=== PATIENT | female | born 1995 ===

== ENCOUNTER 2017-10-15 10:12 | Emergency (ER) | payer MEDICAID, OTHER ==
[2017-10-15 10:20] VITALS: RESP 16; O2SAT 99
[2017-10-15 10:21] VITALS: BMI 28.3
[2017-10-15] MEDS ORDERED: Sodium Chloride 0.9% 1,000 ML IV ONE ×2 (11:26→14:40)
--- NOTE | 2017-10-15 11:37 | ED PDOC ---
HPI: Abdomen Time Seen by Provider: 10/15/17 10:39 Chief Complaint (Nursing): Female Genitourinary History Per: Patient History/Exam Limitations: no limitations Onset/Duration Of Symptoms: Days (1), Gradual Current Symptoms Are (Timing): Still Present Severity: Mild Location Of Pain/Discomfort: RUQ Quality Of Discomfort: Sharp (rads to back) Associated Symptoms: Nausea, Vomiting. denies: Fever, Chills, Diarrhea, Back Pain, Chest Pain, Constipation, Urinary Symptoms Exacerbating Factors: None Alleviating Factors: None Additional History Per: Patient Additional Complaint(s): pt c/o right flank pain for 3-4 days. with some mild urination discomfort. also c.o low grade fever yesterday and a sore throat Past Medical History Reviewed: Historical Data, Nursing Documentation, Vital Signs Vital Signs: Last Vital Signs Temp 97.4 F L 10/15/17 15:23 Pulse 95 H 10/15/17 15:23 Resp 16 10/15/17 15:23 BP 140/92 H 10/15/17 15:23 Pulse Ox 99 10/15/17 15:42 - Medical History PMH: Asthma, Diabetes (type 1), Gall Bladder Disease (CHOLECYSTECTOMY), Kidney Stones, Chronic Kidney Disease Denies: Atrial Fibrillation, Cardia Arrhythmia, CHF, Hepatitis, HTN, Seizures , Sexually Transmitted Disease - Surgical History Surgical History: Cholecystectomy - Family History Family History: States: Unknown Family Hx - Living Arrangements Living Arrangements: With Family - Social History Current smoker - smoking cessation education provided: No - Immunization History Hx Tetanus Toxoid Vaccination: No Hx Influenza Vaccination: No Hx Pneumococcal Vaccination: No - Home Medications Home Medications: Ambulatory Orders Medication Instructions Recorded Ondansetron ODT [Zofran ODT] 4 mg PO Q6 #7 odt 09/20/17 Sucralfate [Carafate] 1 gm PO BID #20 tab 09/20/17 Famotidine [Pepcid] 20 mg PO BID PRN #20 tab 10/15/17 Ondansetron [Zofran Odt] 4 mg PO TID PRN #20 odt 10/15/17 - Allergies Allergies/Adverse Reactions: Allergies Allergy/AdvReac Type Severity Reaction Status Date / Time shellfish derived Allergy SWELLING Verified 09/20/17 09:43 Review of Systems ROS Statement: Except As Marked, All Systems Reviewed And Found Negative Constitutional: Negative for: Fever, Chills ENT: Positive for: Throat Pain Cardiovascular: Negative for: Chest Pain, Palpitations Respiratory: Negative for: Cough, Shortness of Breath Gastrointestinal: Positive for: Nausea, Vomiting, Abdominal Pain Genitourinary Female: Positive for: Dysuria. Negative for: Vaginal Discharge, Vaginal Bleeding, Pelvic Pain Skin: Negative for: Rash Physical Exam - Reviewed Nursing Documentation Reviewed: Yes Vital Signs Reviewed: Yes - Physical Exam Appears: Positive for: Uncomfortable Head Exam: Positive for: ATRAUMATIC, NORMAL INSPECTION, NORMOCEPHALIC Eye Exam: Positive for: Normal appearance, EOMI, PERRL ENT: Positive for: Pharynx Is (clear,mmm). Negative for: Pharyngeal Erythema Neck: Positive for: Normal, Painless ROM, Supple Cardiovascular/Chest: Positive for: Regular Rate, Rhythm, Chest Non Tender. Negative for: Edema, Gallop Respiratory: Positive for: Normal Breath Sounds. Negative for: Decreased Breath Sounds, Accessory Muscle Use, Crackles, Rales, Rhonchi, Stridor, Wheezing , Respiratory Distress Gastrointestinal/Abdominal: Positive for: Normal Exam, Bowel Sounds, Soft, Other (obese). Negative for: Tenderness, Organomegaly, Mass, Distended, Guarding, Rebound, Hernia, Asicites Back: Positive for: Normal Inspection. Negative for: L CVA Tenderness, R CVA Tenderness Extremity: Positive for: Normal ROM. Negative for: Tenderness, Pedal Edema, Calf Tenderness, Deformity Neurologic/Psych: Positive for: Alert, commissary officer II-XII, Oriented. Negative for: Motor/Sensory Deficits - Laboratory Results Result Diagrams: 10/15/17 12:00 10/15/17 12:49 - ECG O2 Sat by Pulse Oximetry: 99 Pulse Ox Interpretation: Normal - Progress ED Course And Treament: PROCEDURE: CT scan abdomen pelvis dated 10/15/2017 HISTORY: Right-sided flank pain r/o stone COMPARISON: Comparison made with prior CT scan abdomen pelvis 07/08/2016 TECHNIQUE: Contiguous helical/transaxial images of the abdomen and pelvis of performed without oral or intravenous contrast material. Sagittal and coronal reformats generated. Radiation dose: Total exam DLP = This CT exam was performed using one or more of the following dose reduction techniques: Automated exposure control, adjustment of the mA and/or kV according to patient size, and/or use of iterative reconstruction technique. FINDINGS: LOWER THORAX: Lung bases clear. No infiltrate effusion or basilar pneumothorax. . There is small hiatal hernia with wall thickening of the distal esophagus likely due to protrusion of gastric mucosa. Possibility of esophagitis not excluded. Heart size within range of normal. No significant pericardial effusion. LIVER: Liver is enlarged measuring nearly 21 cm in CC dimension. No obvious hepatic mass collection or calcification. The all GALLBLADDER AND BILE DUCTS: The gallbladder appears incompletely distended and poorly visualized. PANCREAS: Pancreas appears grossly unremarkable without mass collection or calcification. SPLEEN: Spleen is enlarged measuring just over 13 cm in AP dimension. No splenic mass collection or calcification. ADRENALS: No adrenal lesions are identified. KIDNEYS AND URETERS: There appears to be at least 1 punctate calcification in the mid to lower pole collecting system right kidney with what could represent a tiny faint microcalcifications upper pole. No evidence of right-sided hydronephrosis however there is punctate calcification midpole left kidney. No evidence of left-sided hydronephrosis. BLADDER: Urinary bladder incompletely distended which in part accounts for thick-walled appearance however the possibility of a cystitis not excluded. Clinical correlation recommended. REPRODUCTIVE: Uterus unremarkable. . There is a relatively large approximately 4.6 x 3.2 x 4.3 cm elliptical shaped low-attenuation focus left adnexum likely representing a proteinaceous left ovarian cyst. The the APPENDIX: Normal-appearing appendix best seen on coronal image number [id number]. BOWEL: Evaluation of the bowel is limited due to the lack of oral contrast material. The stomach is incompletely distended. Visualized loops of small bowel exhibit normal contour and caliber. No evidence of acute mechanical small bowel obstruction. Stool and air seen throughout the cecum, ascending and transverse colon. Most of the left colon is collapsed. No definitive evidence of abnormal mural wall thickening. PERITONEUM: Unremarkable. No fluid collection. No free air. LYMPH NODES: Unremarkable. No enlarged lymph nodes. VASCULATURE: Unremarkable. No aortic aneurysm. BONES: No fracture or destructive lesion. OTHER FINDINGS: None. IMPRESSION: There are a few punctate calcifications both kidneys however no evidence of hydronephrosis. Incomplete distention of the urinary bladder which presumably accounts for thick -walled appearance however the possibility of a cystitis not excluded therefore clinical correlation with urinalysis recommended. Hepatosplenomegaly. urine shows no ketones, no nit or leuks. no urinary complaints will d/c home. Re-evaluation Time: 14:30 Condition: Improved Disposition - Clinical Impression Clinical Impression: Vomiting, Hyperglycemia due to type 1 diabetes mellitus - Patient ED Disposition Is Patient to be Admitted: No Counseled Patient/Family Regarding: Studies Performed, Diagnosis, Need For Followup, Rx Given - Disposition Referrals: [facility] [Outside] (2 to 3 days) Disposition: Routine/Home Disposition Time: 14:30 Condition: GOOD Prescriptions: Famotidine [Pepcid] 20 mg PO BID PRN #20 tab PRN Reason: Nausea/Vomiting Ondansetron [Zofran Odt] 4 mg PO TID PRN #20 odt PRN Reason: Nausea/Vomiting Instructions: Nausea and Vomiting, Adult (DC) Forms: [employer] (Ecuadorean)
[2017-10-15 12:18] LABS: BASO % 0.4 % (0.0-2.0); EOS % 0.3 % (0.0-4.0); HEMOGLOBIN 14.5 g/dL (12.0-16.0); LYMPH # 1.1 K/uL (1.0-4.3); LYMPH % 10.3 % (20.0-40.0); MEAN CELL VOLUME 92.6 fl (81.0-99.0); MEAN CORPUSCULAR HEMOGLOBIN 32.5 pg (27.0-31.0); MEAN CORPUSCULAR HGB CONC 35.1 g/dL (33.0-37.0); MEAN PLATELET VOLUME 8.9 fl (7.2-11.7); MONO # 0.6 K/uL (0.0-0.8); MONO % 5.6 % (0.0-10.0); NEUT # 8.6 K/uL (1.8-7.0); NEUT % 83.4 % (50.0-75.0); NRBC % 0.1 % (0.0-0.0); RBC 4.45 Mil/uL (3.80-5.20); RED CELL DISTRIBUTION WIDTH 14.1 % (11.5-14.5)
[2017-10-15 12:22] LABS: WHITE BLOOD COUNT 10.3 K/uL (4.8-10.8)
[2017-10-15 13:08] LABS: ALB/GLOB RATIO 1.2 (1.0-2.1); ALBUMIN 4.3 g/dL (3.5-5.0); ALT/SGPT 49 U/L (9-52); AMYLASE 80 U/L (30-110); AST/SGOT 26 U/L (14-36); BLOOD UREA NITROGEN 11 mg/dl (7-17); CALCIUM 8.8 mg/dL (8.4-10.2); GFR AFRICAN-AMERICAN > 60; GFR NON-AFRICAN AMERICAN > 60; LIPASE 80 U/L (23-300)
[2017-10-15] MEDS ORDERED: Insulin Regular 100 units/ml IV STA (13:27)
--- NOTE | 2017-10-15 13:38 | CT ---
PROCEDURE: CT scan abdomen pelvis dated 10/15/2017 HISTORY: Right-sided flank pain r/o stone COMPARISON: Comparison made with prior CT scan abdomen pelvis 07/08/2016 TECHNIQUE: Contiguous helical/transaxial images of the abdomen and pelvis of performed without oral or intravenous contrast material. Sagittal and coronal reformats generated. Radiation dose: Total exam DLP = This CT exam was performed using one or more of the following dose reduction techniques: Automated exposure control, adjustment of the mA and/or kV according to patient size, and/or use of iterative reconstruction technique. FINDINGS: LOWER THORAX: Lung bases clear. No infiltrate effusion or basilar pneumothorax. . There is small hiatal hernia with wall thickening of the distal esophagus likely due to protrusion of gastric mucosa. Possibility of esophagitis not excluded. Heart size within range of normal. No significant pericardial effusion. LIVER: Liver is enlarged measuring nearly 21 cm in CC dimension. No obvious hepatic mass collection or calcification. The all GALLBLADDER AND BILE DUCTS: The gallbladder appears incompletely distended and poorly visualized. PANCREAS: Pancreas appears grossly unremarkable without mass collection or calcification. SPLEEN: Spleen is enlarged measuring just over 13 cm in AP dimension. No splenic mass collection or calcification. ADRENALS: No adrenal lesions are identified. KIDNEYS AND URETERS: There appears to be at least 1 punctate calcification in the mid to lower pole collecting system right kidney with what could represent a tiny faint microcalcifications upper pole. No evidence of right-sided hydronephrosis however there is punctate calcification midpole left kidney. No evidence of left-sided hydronephrosis. BLADDER: Urinary bladder incompletely distended which in part accounts for thick-walled appearance however the possibility of a cystitis not excluded. Clinical correlation recommended. REPRODUCTIVE: Uterus unremarkable. . There is a relatively large approximately 4.6 x 3.2 x 4.3 cm elliptical shaped low-attenuation focus left adnexum likely representing a proteinaceous left ovarian cyst. The the APPENDIX: Normal-appearing appendix best seen on coronal image number [id number]. BOWEL: Evaluation of the bowel is limited due to the lack of oral contrast material. The stomach is incompletely distended. Visualized loops of small bowel exhibit normal contour and caliber. No evidence of acute mechanical small bowel obstruction. Stool and air seen throughout the cecum, ascending and transverse colon. Most of the left colon is collapsed. No definitive evidence of abnormal mural wall thickening. PERITONEUM: Unremarkable. No fluid collection. No free air. LYMPH NODES: Unremarkable. No enlarged lymph nodes. VASCULATURE: Unremarkable. No aortic aneurysm. BONES: No fracture or destructive lesion. OTHER FINDINGS: None. IMPRESSION: There are a few punctate calcifications both kidneys however no evidence of hydronephrosis. Incomplete distention of the urinary bladder which presumably accounts for thick-walled appearance however the possibility of a cystitis not excluded therefore clinical correlation with urinalysis recommended. Hepatosplenomegaly.
[2017-10-15 15:24] VITALS: BP 140/92; PULSE 95; TEMP 97.4
== END 2017-10-15 16:09 | disposition home or self-care (01) ==
LOC: H.ER 10:12
DX: E11.65 Type 2 diabetes mellitus with hyperglycemia (principal); R11.10 Vomiting, unspecified; Z79.4 Long term (current) use of insulin
CPT/HCPCS: 74176; 80053; 81025; 82150; 82948; 83690; 84703; 85025; 87070; 87430; 87491; 87591; 96361; 96374; 99285; J1885; J7040

== ENCOUNTER 2017-11-10 14:51 | Emergency (ER) | payer MEDICAID, OTHER ==
[2017-11-10 14:51] VITALS: BMI 28.3
[2017-11-10 15:27] VITALS: RESP 16
[2017-11-10] MEDS ORDERED: Sodium Chloride 0.9% 1,000 ML IV STA (15:59)
--- NOTE | 2017-11-10 16:02 | ED PDOC ---
HPI: Abdomen Time Seen by Provider: 11/10/17 15:42 Chief Complaint (Nursing): Abdominal Pain Chief Complaint (Provider): Abdominal pain History Per: Patient History/Exam Limitations: no limitations Onset/Duration Of Symptoms: Days (x3) Current Symptoms Are (Timing): Still Present Location Of Pain/Discomfort: Epigastric Quality Of Discomfort: "Pain" Associated Symptoms: Nausea, Vomiting. denies: Fever, Chills, Diarrhea, Chest Pain, Urinary Symptoms Additional Complaint(s): Meseret Florez is a 22 year old female, with a past medical history of diabetes, who presents to the emergency department complaining of abdominal pain associated with nausea and vomiting onset for x3 days. Patient states she had similar symptoms x1 month ago and was given Zofran and Toradol. Patient reports having this pain multiple times in the past but is unsure what causes it. She did not take medications for the pain. She denies any chest pain, shortness of breath, weakness, numbness, vision changes, headache, dizziness, neck pain, fever, chills, diarrhea or urinary symptoms. No further medical complaints. PMD: Dr. Dumont Past Medical History Reviewed: Historical Data, Nursing Documentation, Vital Signs Vital Signs: Last Vital Signs Temp 98.2 F 11/10/17 15:25 Pulse 108 H 11/10/17 15:25 Resp 16 11/10/17 15:25 BP 145/95 H 11/10/17 15:25 Pulse Ox 100 11/10/17 18:40 - Medical History PMH: Asthma, Diabetes (type 1), Gall Bladder Disease (CHOLECYSTECTOMY), Kidney Stones, Chronic Kidney Disease Denies: Atrial Fibrillation, Cardia Arrhythmia, CHF, Hepatitis, HTN, Seizures , Sexually Transmitted Disease - Surgical History Surgical History: Cholecystectomy - Family History Family History: States: Unknown Family Hx - Social History Alcohol: None Drugs: Denies - Immunization History Hx Tetanus Toxoid Vaccination: No Hx Influenza Vaccination: No Hx Pneumococcal Vaccination: No - Home Medications Home Medications: Ambulatory Orders Medication Instructions Recorded Insulin Aspart, Recombinant 10 unit SQ HS 10/16/17 [Novolog] Insulin Glargine, Recombina 7 units SQ AC 10/16/17 [Lantus] Ondansetron [Zofran] 4 mg PO Q8H PRN #6 tab 11/10/17 - Allergies Allergies/Adverse Reactions: Allergies Allergy/AdvReac Type Severity Reaction Status Date / Time shellfish derived Allergy SWELLING Verified 09/20/17 09:43 Review of Systems ROS Statement: Except As Marked, All Systems Reviewed And Found Negative Constitutional: Negative for: Fever, Chills Eyes: Negative for: Vision Change Cardiovascular: Negative for: Chest Pain Respiratory: Negative for: Shortness of Breath Gastrointestinal: Positive for: Nausea, Vomiting, Abdominal Pain. Negative for : Diarrhea Genitourinary Female: Negative for: Dysuria, Frequency, Incontinence, Hematuria Musculoskeletal: Negative for: Neck Pain Skin: Negative for: Rash Neurological: Negative for: Weakness, Numbness Physical Exam - Reviewed Nursing Documentation Reviewed: Yes Vital Signs Reviewed: Yes - Physical Exam Appears: Positive for: Non-toxic, No Acute Distress Head Exam: Positive for: ATRAUMATIC, NORMOCEPHALIC Skin: Positive for: Normal Color, Warm, Dry Eye Exam: Positive for: Normal appearance, EOMI, PERRL Neck: Positive for: Painless ROM Cardiovascular/Chest: Positive for: Regular Rate, Rhythm. Negative for: Murmur Respiratory: Positive for: Normal Breath Sounds. Negative for: Respiratory Distress Gastrointestinal/Abdominal: Positive for: Tenderness (mild epigastric) Back: Positive for: Normal Inspection. Negative for: L CVA Tenderness, R CVA Tenderness, Vertebral Tenderness Extremity: Positive for: Normal ROM (all extremities). Negative for: Tenderness , Pedal Edema, Deformity, Swelling Neurologic/Psych: Positive for: Alert, Oriented. Negative for: Motor/Sensory Deficits - Laboratory Results Result Diagrams: 11/10/17 16:43 11/10/17 16:43 Interpretation Of Abn Labs: 11.1 wbc - ECG O2 Sat by Pulse Oximetry: 100 (RA) Pulse Ox Interpretation: Normal - Progress ED Course And Treament: 1841: Stable. AAOx3. Labs similar to old. GB removed. Feels much better. Tolerated po. States zofran rx when she gets dc. Has had multiple ER visits for the same. Medical Decision Making Medical Decision Making: Initial Impression: abdominal pain Initial Plan: --CMP --Lipase --Urine dip --Urine --CBC w/ differential --Chest portable [RAD] --Toradol 15 mg IVP --Sodium Chloride 1,000 ml IV 1,000 mls/hr --Zofran Inj 4 mg IV --Reevaluation 16:00 -Patient had a CT abdomen done on 10/15/17 that showed no acute findings. Scribe Attestation: Documented by Luiz Feranndez, acting as a scribe for Will Raya MD Provider Scribe Attestation: All medical record entries made by the Scribe were at my direction and personally dictated by me. I have reviewed the chart and agree that the record accurately reflects my personal performance of the history, physical exam, medical decision making, and the department course for this patient. I have also personally directed, reviewed, and agree with the discharge instructions and disposition. Disposition - Clinical Impression Clinical Impression: Vomiting, Abdominal discomfort - Patient ED Disposition Is Patient to be Admitted: No Counseled Patient/Family Regarding: Studies Performed, Diagnosis, Need For Followup, Rx Given - Disposition Referrals: [facility] [Outside] - 11/14/17 Disposition: Routine/Home Disposition Time: 18:43 Condition: STABLE Additional Instructions: Return if not better in 3 days. Prescriptions: Ondansetron [Zofran] 4 mg PO Q8H PRN #6 tab PRN Reason: Nausea/Vomiting Instructions: Nausea and Vomiting, Adult, Stomach Ache and Stomach Upset
[2017-11-10 16:47] LABS: BASO % 0.4 % (0.0-2.0); EOS % 0.1 % (0.0-4.0); HEMOGLOBIN 14.5 g/dL (12.0-16.0); LYMPH # 1.4 K/uL (1.0-4.3); LYMPH % 12.3 % (20.0-40.0); MEAN CORPUSCULAR HEMOGLOBIN 32.9 pg (27.0-31.0); MEAN CORPUSCULAR HGB CONC 35.7 g/dL (33.0-37.0); MEAN PLATELET VOLUME 8.4 fl (7.2-11.7); MONO # 0.7 K/uL (0.0-0.8); MONO % 6.3 % (0.0-10.0); NEUT % 80.9 % (50.0-75.0); RBC 4.42 Mil/uL (3.80-5.20); RED CELL DISTRIBUTION WIDTH 14.5 % (11.5-14.5); WHITE BLOOD COUNT 11.1 K/uL (4.8-10.8)
--- NOTE | 2017-11-10 17:32 | RAD ---
HISTORY: Abdominal pain. COMPARISON: No prior. FINDINGS: LUNGS: No active pulmonary disease. PLEURA: No significant pleural effusion identified, no pneumothorax apparent. CARDIOVASCULAR: Normal. OSSEOUS STRUCTURES: No significant abnormalities. VISUALIZED UPPER ABDOMEN: Normal. OTHER FINDINGS: None. IMPRESSION: No active disease.
[2017-11-10 18:16] LABS: ALB/GLOB RATIO 1.1 (1.0-2.1); ALBUMIN 4.8 g/dL (3.5-5.0); ALT/SGPT 60 U/L (9-52); AST/SGOT 59 U/L (14-36); BLOOD UREA NITROGEN 16 mg/dl (7-17); CALCIUM 9.7 mg/dL (8.4-10.2); GFR AFRICAN-AMERICAN > 60; GFR NON-AFRICAN AMERICAN > 60; LIPASE 92 U/L (23-300)
[2017-11-10 19:00] VITALS: BP 121/74; PULSE 76; TEMP 98.1; O2SAT 99
== END 2017-11-10 19:00 | disposition home or self-care (01) ==
LOC: H.ER 14:51
DX: R11.10 Vomiting, unspecified (principal); Z79.4 Long term (current) use of insulin; R10.13 Epigastric pain
CPT/HCPCS: 71045; 80053; 81025; 83690; 85025; 96361; 96374; 96375; 99283; J1885; J2405; J7040

== ENCOUNTER 2018-06-14 18:03 | Inpatient (IN) | payer MEDICAID, OTHER ==
[2018-06-14 18:04] VITALS: BMI 28.3
[2018-06-14] MEDS ORDERED: Sodium Chloride 0.9% 1,000 ML IV STA ×2 (18:44→19:27)
--- NOTE | 2018-06-14 18:47 | ED PDOC ---
HPI: Abdomen Time Seen by Provider: 06/14/18 18:46 Chief Complaint (Nursing): Abdominal Pain Chief Complaint (Provider): abdominal pain/back pain History Per: Patient (23 y/o female IDDM here with N/V x 2 days associated with right sided abdominal pain. Denies any dysuria/urinary frequency hematuria. Denies any fevers/chills. ) Past Medical History Reviewed: Historical Data, Nursing Documentation, Vital Signs Vital Signs: Last Vital Signs Temp 97.6 F 06/14/18 18:18 Pulse 118 H 06/14/18 18:18 Resp 20 06/14/18 18:18 BP 155/97 H 06/14/18 18:18 Pulse Ox 99 06/14/18 18:18 - Medical History PMH: Asthma, Diabetes (type 1), Gall Bladder Disease (CHOLECYSTECTOMY), Kidney Stones, Chronic Kidney Disease Denies: Atrial Fibrillation, Cardia Arrhythmia, CHF, Hepatitis, HTN, Seizures, Sexually Transmitted Disease - Surgical History Surgical History: Cholecystectomy - Family History Family History: States: No Known Family Hx - Immunization History Hx Tetanus Toxoid Vaccination: No Hx Influenza Vaccination: No Hx Pneumococcal Vaccination: No - Home Medications Home Medications: Ambulatory Orders Medication Instructions Recorded Insulin Aspart, Recombinant 15 unit SQ TID 10/16/17 [Novolog] Insulin Glargine, Recombina 12 units SQ HS 10/16/17 [Lantus] - Allergies Allergies/Adverse Reactions: Allergies Allergy/AdvReac Type Severity Reaction Status Date / Time shellfish derived Allergy SWELLING Verified 06/14/18 18:17 Review of Systems ROS Statement: Except As Marked, All Systems Reviewed And Found Negative Physical Exam - Reviewed Nursing Documentation Reviewed: Yes Vital Signs Reviewed: Yes - Physical Exam Appears: Positive for: Well, Non-toxic, No Acute Distress Head Exam: Positive for: ATRAUMATIC, NORMAL INSPECTION, NORMOCEPHALIC Skin: Positive for: Normal Color, Warm, DRY Eye Exam: Positive for: EOMI, Normal appearance, PERRL ENT: Positive for: Normal ENT Inspection Neck: Positive for: Normal, Painless ROM Cardiovascular/Chest: Positive for: Regular Rate, Rhythm Respiratory: Positive for: CNT, Normal Breath Sounds Gastrointestinal/Abdominal: Positive for: Normal Exam, Soft Back: Positive for: Normal Inspection, R CVA Tenderness Extremity: Positive for: Normal ROM Neurologic/Psych: Positive for: Alert, Oriented - Laboratory Results Result Diagrams: 11/22/18 05:35 06/15/18 05:35 Urine POC: Negative Urine dip results: Positive for: Leukocyte Esterase (trace), Blood (large) - ECG O2 Sat by Pulse Oximetry: 99 - Progress ED Course And Treament: NS 2 liters wide open toradol 15 mg iv x 1 dose pepcid 20 mg iv x 1 dose zofran 4 mg iv x 1 dose venous blood gas: lactate 3.8; pH 7.49 Potassium noted 3.2. KDUR 40 meq x 1 dose Rocephin 1 gm iv x 1 dose for presumptive pyelonephritis Patient requests additional pain medication. morphine 4 mg iv x 1 dose Disposition - Clinical Impression Clinical Impression: Pyelonephritis, Intractable vomiting, Intractable abdominal pain, Dehydration - Patient ED Disposition Is Patient to be Admitted: Transfer of Care - Disposition Disposition: Transfer of Care Disposition Time: 20:00 Condition: FAIR Patient Signed Over To: Marcie Agosto Handoff Comments: bloodwork/ua/ us abdomen/pelvis/ re-eval
[2018-06-14 19:14] LABS: VENOUS BLOOD GAS BASE EXCESS 4.7 mmol/L (0.0-2.0); VENOUS BLOOD GAS PCO2 37 mmHg (40-60); VENOUS BLOOD GAS PO2 47 mm/Hg (30-55); VENOUS BLOOD PH 7.49 (7.32-7.43)
[2018-06-14 19:17] LABS: BASO # 0.1 K/uL (0.0-0.2); BASO % 0.5 % (0.0-2.0); EOS % 0.1 % (0.0-4.0); HEMOGLOBIN 14.6 g/dL (12.0-16.0); LYMPH # 1.1 K/uL (1.0-4.3); MEAN CELL VOLUME 94.7 fl (81.0-99.0); MEAN CORPUSCULAR HEMOGLOBIN 33.3 pg (27.0-31.0); MEAN CORPUSCULAR HGB CONC 35.2 g/dL (33.0-37.0); MEAN PLATELET VOLUME 7.9 fl (7.2-11.7); MONO # 0.7 K/uL (0.0-0.8); MONO % 6.5 % (0.0-10.0); NEUT # 9.1 K/uL (1.8-7.0); NEUT % 82.9 % (50.0-75.0); RBC 4.38 Mil/uL (3.80-5.20); RED CELL DISTRIBUTION WIDTH 13.7 % (11.5-14.5)
[2018-06-14] MEDS ORDERED: cefTRIAXone (Rocephin) 1 gm Inj IVPB ONE (19:28)
[2018-06-14 19:35] LABS: ALB/GLOB RATIO 1.3 (1.0-2.1); ALBUMIN 4.7 g/dL (3.5-5.0); ALT/SGPT 67 U/L (9-52); AST/SGOT 74 U/L (14-36); BLOOD UREA NITROGEN 8 mg/dl (7-17); CALCIUM 8.6 mg/dL (8.4-10.2); GFR NON-AFRICAN AMERICAN > 60; LIPASE 49 U/L (23-300)
[2018-06-14] MEDS ORDERED: cefTRIAXone (Rocephin) 1 gm Inj ONE (19:38)
[2018-06-14] MEDS ORDERED: Potassium Chloride 20 mEq ER Tab PO STA (19:39)
[2018-06-14] MEDS ORDERED: Morphine 4 MG/ML VIAL IVP ONE (19:44)
[2018-06-14] MEDS ORDERED: Morphine 4 MG/ML VIAL ONE ×2 (19:46→22:58)
[2018-06-14] MEDS ORDERED: Potassium Chloride 20 mEq ER Tab PO ONE (19:47)
[2018-06-14 20:48] LABS: URINE BILIRUBIN NEGATIVE (NEGATIVE); URINE BLOOD NEGATIVE (NEGATIVE); URINE CLARITY TURBID (Clear); URINE COLOR BLUE (YELLOW); URINE GLUCOSE (UA) NEG (Normal); URINE LEUKOCYTE ESTERASE LARGE Leu/uL (Negative); URINE PROTEIN >=500 mg/dL (NEGATIVE); URINE UROBILINOGEN 0.2-1.0 mg/dL (0.2-1.0)
--- NOTE | 2018-06-14 22:07 | ED PDOC ---
- Laboratory Results Result Diagrams: 06/14/18 19:12 06/14/18 19:12 Urine POC: Negative - ECG O2 Sat by Pulse Oximetry: 99 - Progress ED Course And Treament: Case endorsed to financial underwriter from Natanael KEYES pending imaging, labs CLINICAL HISTORY: RUQ pain, vomiting, weakness. TECHNIQUE: Realtime sonographic images were obtained in multiple projections. COMMENTS: The liver shows increased echogenicity without evidence of mass or defect measuring 17.7 cm. There is no intra or extrahepatic biliary ductal dilatation. The common bile duct measures 0.46 cm. The gallbladder is contracted with gallstones. The gallbladder wall is not thickened and there is no pericholecystic fluid. There is no abdominal ascites. The visualized portions of abdominal aorta present no abnormalities measuring 1.3 cm. The inferior vena cava is patent. The pancreas is not clearly visualized due to bowel gas. The spleen is of uniform echo texture and does not appear enlarged measuring 10.9 cm. The right kidney measures 11.7 x 4 x 4.6 cm and the left kidney measures 9.2 x 5.1 x 5.5 cm. Both kidneys are free of hydronephrosis. IMPRESSION: 1. Fatty liver. 2. Contracted gallbladder with stones. Patient with persistent pain and vomiting in ED Case discussed with Dr. Beck, medical service on-call, for admission for intractable vomiting, pyelonephritis. CT abd/pelvis USArad impression: mild colitis Disposition - Clinical Impression Clinical Impression: Pyelonephritis, Intractable vomiting, Intractable abdominal pain, Dehydration - POA Present On Arrival: Poor Glycemic Control - Disposition Disposition: Admitted as In-Patient Disposition Time: 23:00 Condition: FAIR
[2018-06-14] MEDS ORDERED: Morphine 4 MG/ML VIAL IV ONE ×2 (22:30→22:53)
[2018-06-14] MEDS ORDERED: DiphenhydrAMINE 50 mg/ml Inj IV ONE (23:24)
[2018-06-14] MEDS ORDERED: DiphenhydrAMINE 50 mg/ml Inj ONE (23:42)
[2018-06-14] MEDS ORDERED: Iohexol 300 100 ML IJ ONE (23:47)
[2018-06-14] MEDS ORDERED: Sodium Chloride 0.9% 50 ML IV ONE (23:47)
[2018-06-15] MEDS: Sodium Chloride 0.9% 1,000 ML IV SCH ×3 (01:17→21:15)
[2018-06-15] MEDS: Morphine 4 MG/ML VIAL IVP PRN ×4 (01:46→21:41)
[2018-06-15 06:30] LABS: BASO % 0.2 % (0.0-2.0); HEMOGLOBIN 12.7 g/dL (12.0-16.0); LYMPH # 0.9 K/uL (1.0-4.3); LYMPH % 9.3 % (20.0-40.0); MEAN CELL VOLUME 95.8 fl (81.0-99.0); MEAN CORPUSCULAR HEMOGLOBIN 33.7 pg (27.0-31.0); MEAN CORPUSCULAR HGB CONC 35.1 g/dL (33.0-37.0); MONO # 0.7 K/uL (0.0-0.8); MONO % 6.9 % (0.0-10.0); NEUT # 8.2 K/uL (1.8-7.0); NEUT % 83.6 % (50.0-75.0); PLATELET COUNT 233 K/uL (130-400); RBC 3.77 Mil/uL (3.80-5.20); RED CELL DISTRIBUTION WIDTH 13.5 % (11.5-14.5); WHITE BLOOD COUNT 9.8 K/uL (4.8-10.8)
[2018-06-15 06:36] LABS: ALB/GLOB RATIO 1.2 (1.0-2.1); ALBUMIN 3.8 g/dL (3.5-5.0); ALT/SGPT 53 U/L (9-52); AST/SGOT 47 U/L (14-36); BLOOD UREA NITROGEN 9 mg/dl (7-17); CALCIUM 7.4 mg/dL (8.4-10.2); GFR NON-AFRICAN AMERICAN > 60
[2018-06-15] MEDS: Insulin Lispro (humaLOG) 100 Units/ml Inj SC SCH ×3 (08:38→16:22)
--- NOTE | 2018-06-15 08:49 | CT ---
Date of service: 06/14/2018 PROCEDURE: CT Abdomen and Pelvis with contrast HISTORY: right flank pain, vomiting COMPARISON: 10/15/2017 CT abdomen and pelvis. TECHNIQUE: Intravenous contrast dose: 95 cc Omnipaque 300. Radiation dose: Total exam DLP = 861.52 mGy-cm. This CT exam was performed using one or more of the following dose reduction techniques: Automated exposure control, adjustment of the mA and/or kV according to patient size, and/or use of iterative reconstruction technique. FINDINGS: LOWER THORAX: Unremarkable. LIVER: Hepatic steatosis. No focal masses. No intrahepatic bile duct dilatation or perihepatic ascites. GALLBLADDER AND BILE DUCTS: Unremarkable. PANCREAS: Unremarkable. No gross lesion or ductal dilatation. SPLEEN: Unremarkable. ADRENALS: Unremarkable. No mass. KIDNEYS AND URETERS: Unremarkable. No hydronephrosis. No solid mass. VASCULATURE: Unremarkable. No aortic aneurysm. No atherosclerotic calcification or mural plaque present. BOWEL: Severe, diffuse colitis affecting in decreasing order of severity the right salome colon and transverse colon/descending colon. APPENDIX: A normal appendix is not visible. PPSA coefficient: PERITONEUM: Unremarkable. No free fluid. No free air. LYMPH NODES: Unremarkable. No enlarged lymph nodes. BLADDER: Under distended urinary bladder accentuating bladder wall thickness. This represents a nonspecific finding which can be seen with cystitis. REPRODUCTIVE: Multiple bilateral cystic adnexal masses, the largest on the left measures 4.9 x 5.3 cm. This was evident on a prior CT scan 10/15/2017. BONES: No acute fracture. OTHER FINDINGS: None. IMPRESSION: Diffuse colitis, uncomplicated. The right hemicolon is affected to a greater degree than the descending colon and sigmoid. Concordant results (preliminary interpretation) provided by [facility]. Procedure Completed: 00:02. Preliminary Report: Dictated and Authenticated: 01:04. Final Interpretation: 08:45. June 15, 2018
--- NOTE | 2018-06-15 10:13 | US ---
Date of service: 06/14/2018 HISTORY: evaluate for gallbladder disease COMPARISON: 06/28/2016 TECHNIQUE: Sonographic evaluation of the abdomen. FINDINGS: LIVER: Measures 17.7 cm. Patent portal vein. Portal venous flow: Hepatopetal. Unremarkable echogenicity of the liver parenchyma. No mass. No intrahepatic bile duct dilatation. GALLBLADDER: Contracted gallbladder containing gallstones. COMMON BILE DUCT: Measures 4.6 mm. No stones. No dilatation. PANCREAS: Obscured by overlying bowel gas. Non diagnostic assessment of the pancreas RIGHT KIDNEY: Measures 4 x 11.7cm. Normal echogenicity. No calculus, mass, or hydronephrosis. LEFT KIDNEY: Measures 5.1 x 9.2cm. Normal echogenicity. No calculus, mass, or hydronephrosis. SPLEEN: Normal in size and contour. No mass. AORTA: No aneurysmal dilatation. IVC: Unremarkable. OTHER FINDINGS: None. IMPRESSION: Cholelithiasis. No sonographic evidence of acute cholecystitis. Concordant findings (preliminary report) provided by [facility].
[2018-06-15 11:30] LABS: BASOPHIL 1 % (0-2); LYMPHOCYTE 6 % (20-50); MONOCYTE 4 % (0-10); NEUTROPHIL 88 % (42-75); PLATELET ESTIMATE NORMAL (NORMAL); REACTIVE LYMPHOCYTES 1 % (0-0); TOTAL CELLS COUNTED 100
[2018-06-15] MEDS ORDERED: Ciprofloxacin 400mg/200ml D5W 400 MG/200 ML BAG IVPB SCH (12:15)
[2018-06-15] MEDS: metroNIDAZOLE 500mg/100ml NS 100 ML IVPB SCH ×2 (16:19→16:23)
[2018-06-15] MEDS: Insulin Detemir 100 Units/ml Inj SC SCH (21:49)
[2018-06-16] MEDS: metroNIDAZOLE 500mg/100ml NS 100 ML IVPB SCH ×3 (00:31→17:00)
[2018-06-16] MEDS: Sodium Chloride 0.9% 1,000 ML IV SCH (00:32)
[2018-06-16] MEDS: Ciprofloxacin 400mg/200ml D5W 400 MG/200 ML BAG IVPB SCH ×2 (03:46→16:38)
[2018-06-16] MEDS: Morphine 4 MG/ML VIAL IVP PRN ×4 (03:55→20:30)
[2018-06-16] MEDS: Insulin Lispro (humaLOG) 100 Units/ml Inj SC SCH ×3 (09:00→18:00)
--- NOTE | 2018-06-16 10:23 | US ---
Date of service: 06/15/2018 HISTORY: adnexal masses COMPARISON: None available. TECHNIQUE: Transvaginal and transabdominal FINDINGS: UTERUS: Measures 7.4 x 4.1 x 3.5 cm. Normal in size and appearance. No fibroid or other mass lesion seen. ENDOMETRIUM: Measures 7 mm in diameter. Unremarkable. CERVIX: No cervical abnormality identified. RIGHT OVARY: Measures 4.1 x 2.5 x 3.6 cm. No solid mass. Normal flow. Dominant follicular cyst 2.4 cm. LEFT OVARY: Measures 6.0 x 5.3 x 4.7 cm. No solid mass. Normal flow. Complex cyst with heterogeneous intermediate level echoes, 3.6 x 4.5 x 4.6 cm. Likely hemorrhagic cyst. Recommend follow-up transvaginal pelvic ultrasound examination in 6-12 weeks. FREE FLUID: No significant free fluid noted. OTHER FINDINGS: None. IMPRESSION: Probable hemorrhagic cyst in the left ovary, 4.6 cm. Recommend follow-up transvaginal pelvic ultrasound examination in 6-12 weeks. Otherwise unremarkable examination.
--- NOTE | 2018-06-16 15:54 | CP.PCM.CON ---
History of Present Illness - History of Present Illness History of Present Illness: anesthesiology note: Pain management was consulted to provide pain relief for this patient who has abdominal pain. History and labs were reviewed ,patient interviewed and examined. Patient stated that her pain was controlled by 2 mg morphine but recurred afterwards. Plan: continue morphine but decrease the interval to every 4 hours prn. Past Patient History - Infectious Disease Hx of Infectious Diseases: None - Tetanus Immunizations Tetanus Immunization: Unknown - Past Medical History & Family History Past Medical History?: Yes - Past Social History Smoking Status: Never Smoked - CARDIAC Hx Atrial Fibrillation: No Hx Cardia Arrhythmia: No Hx Congestive Heart Failure: No Hx Hypertension: No - PULMONARY Hx Asthma: Yes - NEUROLOGICAL Hx Seizures: No - HEENT Hx HEENT Problems: No - RENAL Hx Chronic Kidney Disease: Yes Hx Kidney Stones: Yes - ENDOCRINE/METABOLIC Hx Endocrine Disorders: Yes Hx Diabetes Mellitus Type 1: Yes - INTEGUMENTARY Hx Dermatological Problems: No - MUSCULOSKELETAL/RHEUMATOLOGICAL Hx Musculoskeletal Disorders: No Hx Falls: No - GASTROINTESTINAL Hx Gall Bladder Disease: Yes (CHOLECYSTECTOMY) - GENITOURINARY/GYNECOLOGICAL Hx Sexually Transmitted Disorders: No - PSYCHIATRIC Hx Psychophysiologic Disorder: No Hx Substance Use: No - SURGICAL HISTORY Hx Cholecystectomy: Yes - ANESTHESIA Hx Anesthesia: Yes Hx Anesthesia Reactions: No Hx Malignant Hyperthermia: No Meds Allergies/Adverse Reactions: Allergies Allergy/AdvReac Type Severity Reaction Status Date / Time shellfish derived Allergy SWELLING Verified 06/14/18 18:17 - Medications Medications: Current Medications Metronidazole (Flagyl 500mg/100ml Ns) 100 mls @ 100 mls/hr IVPB Q8 LAILA; Protocol Last Admin: 06/16/18 11:00 Dose: 100 mls/hr Ciprofloxacin (Cipro 400mg/200ml Dsw) 400 mg in 200 mls @ 200 mls/hr IVPB Q12@0400,1600 LAILA; Protocol Last Admin: 06/16/18 03:46 Dose: 200 mls/hr Insulin Detemir (Levemir) 12 units SC HS LAILA Last Admin: 06/15/18 21:49 Dose: 12 units Insulin Human Lispro (Humalog) 15 units SC TID LAILA Last Admin: 06/16/18 13:24 Dose: Not Given Ketorolac Tromethamine (Toradol) 30 mg IVP Q6 PRN PRN Reason: Pain, moderate (4-7) Last Admin: 06/16/18 07:33 Dose: 30 mg Morphine Sulfate (Morphine) 2 mg IVP Q6 PRN PRN Reason: Pain, severe (8-10) Last Admin: 06/16/18 10:03 Dose: 2 mg Morphine Sulfate (Morphine) 2 mg IVP ONCE ONE Stop: 06/16/18 15:36 Morphine Sulfate (Morphine) 2 mg IVP Q4 PRN PRN Reason: pain Ondansetron HCl (Zofran Inj) 4 mg IVP Q6 PRN PRN Reason: Nausea/Vomiting Last Admin: 06/16/18 08:33 Dose: 4 mg Results - Vital Signs Recent Vital Signs: Last Vital Signs Temp 98.4 F 06/16/18 09:00 Pulse 86 06/16/18 09:00 Resp 20 06/16/18 09:00 BP 168/95 H 06/16/18 09:00 Pulse Ox 100 06/16/18 09:00 - Labs Result Diagrams: 06/15/18 05:35 06/15/18 05:35 Labs: Laboratory Results - last 24 hr 06/15/18 06/15/18 06/15/18 16:20 18:50 21:47 POC Glucose (mg/dL) 93 40 L 83 06/16/18 06/16/18 05:42 11:36 POC Glucose (mg/dL) 156 H 120 H
[2018-06-16] MEDS: Insulin Detemir 100 Units/ml Inj SC SCH (22:03)
[2018-06-17] MEDS: Morphine 4 MG/ML VIAL IVP PRN ×4 (00:26→13:40)
[2018-06-17] MEDS: metroNIDAZOLE 500mg/100ml NS 100 ML IVPB SCH ×2 (01:30→08:37)
[2018-06-17 01:52] VITALS: RESP 20
[2018-06-17] MEDS: Ciprofloxacin 400mg/200ml D5W 400 MG/200 ML BAG IVPB SCH (03:37)
[2018-06-17] MEDS: Insulin Lispro (humaLOG) 100 Units/ml Inj SC SCH ×2 (08:37→13:00)
[2018-06-17 08:48] VITALS: BP 159/85; PULSE 82; TEMP 97.9; O2SAT 99
--- NOTE | 2018-06-17 11:43 | CP.PCM.PN ---
Subjective - Date & Time of Evaluation Date of Evaluation: 06/17/18 Time of Evaluation: 11:30 - Subjective Subjective: Patient is improving clinically, pain is controlled on the current regimen of Morphine 2mg IV q4h PRN. She denies side effects from the medication. Pain is improving and she's tolerating PO. Objective - Vital Signs/Intake and Output Vital Signs (last 24 hours): Temp Pulse Resp BP Pulse Ox 97.9 F 82 20 159/85 H 99 06/17/18 08:47 06/17/18 08:47 06/17/18 08:47 06/17/18 08:47 06/17/18 08:47 - Medications Medications: Current Medications Metronidazole (Flagyl 500mg/100ml Ns) 100 mls @ 100 mls/hr IVPB Q8 LAILA; Protocol Last Admin: 06/17/18 08:37 Dose: 100 mls/hr Ciprofloxacin (Cipro 400mg/200ml Dsw) 400 mg in 200 mls @ 200 mls/hr IVPB Q12@0400,1600 LAILA; Protocol Last Admin: 06/17/18 03:37 Dose: 200 mls/hr Insulin Detemir (Levemir) 12 units SC HS REPLACED BY [facility] Last Admin: 06/16/18 22:03 Dose: 12 units Insulin Human Lispro (Humalog) 15 units SC TID REPLACED BY [facility] Last Admin: 06/17/18 08:37 Dose: Not Given Ketorolac Tromethamine (Toradol) 30 mg IVP Q6 PRN PRN Reason: Pain, moderate (4-7) Last Admin: 06/16/18 07:33 Dose: 30 mg Morphine Sulfate (Morphine) 2 mg IVP Q4 PRN PRN Reason: Pain, severe (8-10) Last Admin: 06/17/18 08:35 Dose: 2 mg Ondansetron HCl (Zofran Inj) 4 mg IVP Q6 PRN PRN Reason: Nausea/Vomiting Last Admin: 06/17/18 04:28 Dose: 4 mg - Labs Labs: 06/15/18 05:35 06/15/18 05:35 - Constitutional Appears: Well, No Acute Distress Assessment and Plan - Assessment and Plan (Free Text) Assessment: 23 yo woman is doing better clinically. Pain is controlled on the current regimen. - continue Morphine for now - can start Percocet once patient is taking full PO
== END 2018-06-17 16:08 | disposition home or self-care (01) | DRG 463 ==
LOC: H.ER 18:03 → H.ERHOLD 23:13 → H.MEDSURG1 06-15 00:37
PROVIDERS: ADMIT Family Medicine; ATTEND Family Medicine
DX: N12 Tubulo-interstitial nephritis, not specified as acute or chronic (principal); E10.22 Type 1 diabetes mellitus with diabetic chronic kidney disease; E10.9 Type 1 diabetes mellitus without complications; E86.0 Dehydration; Z79.4 Long term (current) use of insulin; J45.909 Unspecified asthma, uncomplicated; N18.9 Chronic kidney disease, unspecified; Z91.013 Allergy to seafood

== ENCOUNTER 2018-08-22 14:59 | Inpatient (IN) | payer MEDICAID, OTHER ==
[2018-08-22 14:59] VITALS: BMI 28.6
--- NOTE | 2018-08-22 15:39 | ED PDOC ---
Hyperglycemia/Hypoglycemia Time Seen by Provider: 08/22/18 15:18 Chief Complaint (Nursing): High Blood Sugar Chief Complaint (Provider): Hyperglycemia/Cannaboid Hyperemesis History Per: Patient History/Exam Limitations: no limitations Onset/Duration Of Symptoms: Days (>365) Current Symptoms Are (Timing): Intermittent Episodes Severity: Mild (Pt presents to the ED as a D1M that has not taken insulin in over a year complaining of incessant vomiting that she has been seen over six times in ED setting in the last 45 days. Pt acknowledges (she says for the first time) that she is a very frequent user of marijuana and as well admits on further history that she has symptoms of bulemia nervosa that attributes to her vomiting) : The patient does not have any of the infectious symptoms listed except for those marked. Past Medical History Reviewed: Historical Data, Nursing Documentation, Vital Signs Vital Signs: Last Vital Signs Temp 98.0 F 08/22/18 15:01 Pulse 123 H 08/22/18 15:01 Resp 16 08/22/18 15:01 BP 131/104 H 08/22/18 15:01 Pulse Ox 100 08/22/18 15:01 - Medical History PMH: Asthma, Diabetes (type 1), Gall Bladder Disease (CHOLECYSTECTOMY), Kidney Stones, Chronic Kidney Disease Denies: Atrial Fibrillation, Cardia Arrhythmia, CHF, Hepatitis, HTN, Seizures, Sexually Transmitted Disease - Surgical History Surgical History: Cholecystectomy - Family History Family History: States: Unknown Family Hx - Immunization History Hx Tetanus Toxoid Vaccination: Yes Hx Influenza Vaccination: Yes Hx Pneumococcal Vaccination: Yes - Home Medications Home Medications: Ambulatory Orders Medication Instructions Recorded Insulin Aspart, Recombinant 15 unit SQ TID 10/16/17 [Novolog] Insulin Glargine, Recombina 12 units SQ HS 10/16/17 [Lantus] Omeprazole Magnesium [Prilosec Otc] 20 mg PO DAILY #14 tablet. 07/14/18 Prochlorperazine [Compazine] 10 mg PO TID #12 tab 08/21/18 - Allergies Allergies/Adverse Reactions: Allergies Allergy/AdvReac Type Severity Reaction Status Date / Time shellfish derived Allergy SWELLING Verified 08/22/18 15:01 Review of Systems ROS Statement: Except As Marked, All Systems Reviewed And Found Negative Gastrointestinal: Positive for: Nausea, Vomiting, Abdominal Pain Physical Exam - Reviewed Nursing Documentation Reviewed: Yes Vital Signs Reviewed: Yes - Physical Exam Appears: Positive for: Well, Non-toxic, No Acute Distress, Uncomfortable. Negative for: In Acute Distress Head Exam: Positive for: ATRAUMATIC, NORMAL INSPECTION Skin: Positive for: Normal Color, Warm, Dry. Negative for: Diaphoresis, Pallor, Rash Eye Exam: Positive for: Normal appearance, EOMI. Negative for: Nystagmus, Perio rbital swelling, Periorbital tenderness ENT: Positive for: Normal ENT Inspection Neck: Positive for: Normal, Painless ROM, Supple. Negative for: Decreased ROM Cardiovascular/Chest: Positive for: Regular Rate, Rhythm Respiratory: Positive for: Normal Breath Sounds Pulses-Carotid (L): 2+ Pulses-Carotid (R): 2+ Pulses-Radial (L): 2+ Pulses-Radial (R): 2+ Gastrointestinal/Abdominal: Positive for: Normal Exam, Bowel Sounds (active in all four quadrants), Soft. Negative for: Tenderness, Mass, Distended, Guarding, Rebound, Asicites - Laboratory Results Result Diagrams: 08/22/18 16:13 08/22/18 16:13 - ECG O2 Sat by Pulse Oximetry: 100 Medical Decision Making Medical Decision Making: Tx with SC insulin to lower blood sugar discussed with patient in depth the importance in maintaining appropriate glucose levels and using her insulin discussed psycho-social bulemia-nervosa and indicated that referrals would be provided rx- reglan received last night from [facility] Disposition - Clinical Impression Clinical Impression: Cannabinoid hyperemesis syndrome, Hyperglycemia - Patient ED Disposition Is Patient to be Admitted: No Doctor Will See Patient In The: Office Counseled Patient/Family Regarding: Diagnosis, Need For Followup, Rx Given - Disposition Referrals: Community Mental Health [Outside] Disposition: Routine/Home Disposition Time: 18:40 Condition: STABLE Instructions: Hyperglycemia, Adult (DC), Hyperglycemia, Adult, Blood Glucose Monitoring, Drug Abuse and Drug Addiction (DC), Drug Abuse Treatment, Bulimia Nervosa Forms: [employer] (I[place]ic)
[2018-08-22] MEDS ORDERED: Sodium Chloride 0.9% 1,000 ML IV SCH (16:00)
[2018-08-22 16:18] LABS: BASO # 0.1 K/uL (0.0-0.2); BASO % 1.2 % (0.0-2.0); EOS % 0.1 % (0.0-4.0); HEMOGLOBIN 14.5 g/dL (12.0-16.0); LYMPH # 1.2 K/uL (1.0-4.3); MEAN CELL VOLUME 93.4 fl (81.0-99.0); MEAN CORPUSCULAR HEMOGLOBIN 32.6 pg (27.0-31.0); MEAN CORPUSCULAR HGB CONC 34.9 g/dL (33.0-37.0); MEAN PLATELET VOLUME 8.2 fl (7.2-11.7); MONO # 0.8 K/uL (0.0-0.8); MONO % 6.2 % (0.0-10.0); NEUT # 10.7 K/uL (1.8-7.0); NEUT % 83.5 % (50.0-75.0); RBC 4.44 Mil/uL (3.80-5.20); RED CELL DISTRIBUTION WIDTH 14.2 % (11.5-14.5); WHITE BLOOD COUNT 12.8 K/uL (4.8-10.8)
[2018-08-22 16:27] LABS: ALB/GLOB RATIO 1.2 (1.0-2.1); ALBUMIN 4.6 g/dL (3.5-5.0); BLOOD UREA NITROGEN 13 mg/dl (7-17); CALCIUM 8.8 mg/dL (8.4-10.2); GFR NON-AFRICAN AMERICAN > 60; LIPASE 63 U/L (23-300)
[2018-08-22 16:28] LABS: ALT/SGPT 39 U/L (9-52); AST/SGOT 49 U/L (14-36)
[2018-08-22] MEDS ORDERED: Insulin Regular 100 units/ml SC STA (16:35)
[2018-08-22 16:38] LABS: SQUAMOUS EPITHIAL 3 /hpf (0-5); URINE BACTERIA MANY (<OCC); URINE BILIRUBIN NEGATIVE (NEGATIVE); URINE BLOOD SMALL (NEGATIVE); URINE CLARITY TURBID (Clear); URINE COLOR AMBER (YELLOW); URINE GLUCOSE (UA) NEG (NEGATIVE); URINE LEUKOCYTE ESTERASE MOD Leu/uL (Negative); URINE PROTEIN 100 mg/dL (NEGATIVE); URINE UROBILINOGEN 0.2-1.0 mg/dL (0.2-1.0); WBC CLUMPS RARE /hpf
[2018-08-22] MEDS ORDERED: Insulin Regular 100 units/ml ONE (16:55)
[2018-08-22 16:57] LABS: BARBITURATES, UR NEGATIVE (NEGATIVE); BENZODIAZEPINES, UR NEGATIVE (NEGATIVE); OPIATES, UR NEGATIVE (NEGATIVE); PHENCYCLIDINE, UR NEGATIVE (NEGATIVE)
[2018-08-22] MEDS ORDERED: Tmp-Smz 800 mg-160 mg DS Tab PO STA (18:06)
[2018-08-22] MEDS ORDERED: Tmp-Smz 800 mg-160 mg DS Tab ONE (19:11)
--- NOTE | 2018-08-22 21:43 | ED PDOC ---
- Laboratory Results Result Diagrams: 08/22/18 16:13 08/22/18 16:13 Lab Results: Total Bilirubin 1.2 mg/dl (0.2-1.3) 08/22/18 16:13 AST 49 U/L (14-36) H 08/22/18 16:13 ALT 39 U/L (9-52) 08/22/18 16:13 Alkaline Phosphatase 55 U/L (38-126) 08/22/18 16:13 Total Protein 8.3 G/DL (6.3-8.2) H 08/22/18 16:13 Albumin 4.6 g/dL (3.5-5.0) 08/22/18 16:13 Globulin 3.7 gm/dL (2.2-3.9) 08/22/18 16:13 Albumin/Globulin Ratio 1.2 (1.0-2.1) 08/22/18 16:13 Lipase 63 U/L (23-300) 08/22/18 16:13 Urine Color Key (YELLOW) 08/22/18 16:13 Urine Clarity Turbid (Clear) 08/22/18 16:13 Urine pH 6.0 (5.0-8.0) 08/22/18 16:13 Ur Specific [place] 1.013 (1.003-1.030) 08/22/18 16:13 Urine Protein 100 mg/dL (NEGATIVE) 08/22/18 16:13 Urine Glucose (UA) Neg mg/dL (NEGATIVE) 08/22/18 16:13 Urine Ketones Negative mg/dL (NEGATIVE) 08/22/18 16:13 Urine Blood Small (NEGATIVE) 08/22/18 16:13 Urine Nitrate Negative (NEGATIVE) 08/22/18 16:13 Urine Bilirubin Negative (NEGATIVE) 08/22/18 16:13 Urine Urobilinogen 0.2-1.0 mg/dL (0.2-1.0) 08/22/18 16:13 Ur Leukocyte Esterase Mod Bhavana/uL (Negative) 08/22/18 16:13 Urine RBC (Auto) 21 /hpf (0-3) H 08/22/18 16:13 Urine WBC Clumps (Auto) Rare /hpf (NONE) H 08/22/18 16:13 Urine Microscopic WBC 925 /hpf (0-5) H 08/22/18 16:13 Ur Squamous Epith Cells 3 /hpf (0-5) 08/22/18 16:13 Urine Bacteria Many (<OCC) H 08/22/18 16:13 - ECG ECG: Positive for: Viewed By Me (reviewed by ED attending) ECG Rhythm: Positive for: Sinus Tachycardia O2 Sat by Pulse Oximetry: 100 - Progress ED Course And Treament: Case endorsed to sql report writer from Steffanie KEYES pending crisis eval Patient evaluated by parish worker; to be admitted as per Dr. Thompson Patient appears anxious on re-eval; Ativan ordered. IV NS bolus ordered for elevated HR. EKG ordered Medical Decision Making Medical Decision Making: Patient medically stable for psych admission Disposition - Clinical Impression Clinical Impression: Cannabinoid hyperemesis syndrome, Hyperglycemia, Depression, UTI (urinary tract infection) - POA Present On Arrival: None - Disposition Disposition: Admitted as In-Patient Disposition Time: 23:00 Condition: STABLE
[2018-08-22] MEDS ORDERED: Sodium Chloride 0.9% 1,000 ML IV STA (22:38)
[2018-08-23 00:23] VITALS: O2SAT 100
[2018-08-23] MEDS ORDERED: Magnesium Hydroxide Susp 30 ml UD PO PRN (00:38)
[2018-08-23] MEDS ORDERED: Alum-Mag Hydrox-Simethicone Susp (30 mL) PO PRN (00:38)
[2018-08-23] MEDS ORDERED: DiphenhydrAMINE 50 mg/ml Inj IM PRN (00:38)
--- NOTE | 2018-08-23 00:57 | PCM.BM ---
<Brianna Retana Minnie - Last Filed: 08/23/18 00:53> Treatment Plan Problems - Problems identified on initial assessmt Medication Nonadherence Date Initiated: 08/23/18 Time Initiated: 00:53 Assessment reference: NA Status: Active Hopeless/Helplessness Date Initiated: 08/23/18 Time Initiated: 01:01 Assessment reference: NA Status: Active Treatment assets and liabiliti Patient Assests: cooperative, ADL independent, negotiates basic needs, cognitively intact Patient Liabilities: financial problems, poor support system, substance abuse, medical problems - Milieu Protocol Maintain good personal hygiene: daily Encourage regular showers, daily Remind patient to perform daily oral care, other Assist patient to perform ADL's (prn) Conduct patient checks and document Observation sheet: Q15 minutes Maintain personal safety: every shift Educate patient to report safety concerns to staff, every shift Monitor environment for contraband/sharps Medication safety: Monitor for expected outcome, potential side effects: every shift, Assess barriers to learning: every shift, Assess readiness for medication education: every shift <Nieves Quinones - Last Filed: 08/25/18 16:14> Treatment assets and liabiliti Patient Assests: adapts well, cooperative, educated (Pt. 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 ), resourceful, self-reliant, ADL independent, good support system (Pt. identifies mother as best friend until her in March 2018 (leukemia). Pt. reports having a loving relationship with 4 siblings (2 brothers- age 25/21, twin sisters- age 16- 1 sister with developmental delays). ), cognitively intact Patient Liabilities: financial problems (Pt. reports recently being denied Medicaid/[place]/Rental Assistance secondary to income. ), substance abuse (Pt. reports daily marijuana use for means of self-medication and infrequent social ETOH use. ), medical problems (Pt. reports hx of asthma, cholecystectomy, diabetes, kidney stones, and chronic kidney disease. Pt. reports recent inability to adhere with medical medications secondary to financial strain. Please see H&P.) Family Contact Family involvement: Family/SO is involved Family contact: Patient agrees to contact, Family has been contacted by patient, Telephone contact initiated by staff - Goals for Treatment Patient goals for treatment: Acidizer placed call to pts aunt Jodi [phone] to discuss pts progress on 3NP, as per pts request. Acidizer provided psychoeducation regarding nature of tx provided on 3NP, pts progress on 3NP since admission, and current tx plan. Acidizer expressed pts anxieties regarding aunt having to care for pts siblings secondary to her hospitalization. Pts aunt reported having encourage pt to seek tx for several weeks, explaining to pt that she cannot adequately care for her siblings if she does not care for herself first. Pts aunt confirmed that pts sisters are safe and being cared for by aunt, aunts fiance, and aunts 18 year old daughter. Pts aunt stated that pt. should prioritize her tx and remain on 3NP until appropriate for discharge. Acidizer emphasized importance of adherence with aftercare to improve functioning in the community and reduce risk of future hospitalizations.Pts aunt reported that pt should rest assured that family is supportive of the above. Acidizer to continue to provide clinical updates regarding pts progress and discharge planning. Discharge/Continuing Care - Education Needs Education Needs: Family Medication, Family Diagnosis/Disease Process, Family Community resources, Family Aftercare Safety Plan, Patient Medication, Patient Diagnosis/Disease Process, Patient Coping Skills, Patient Community resources, Patient Aftercare Safety Plan - Discharge Discharge Criteria: Tolerates medication w/o severe side effects, Free of Suicidal thoughts, Normal sleep pattern, Ability to care for self, Reduction of target symptoms (reduction in urge to purge/self injure) Discharge to:: Home, With Family, Other ([facility]- Outpatient Mental Health Services) - Treatment Team Participation Patient/Family/SO Statement: 08/25/18 16:21 Patient was brought into tx team today to discuss progress on 3NP and tx goals. Pt. reported lability in mood as exhibited by feelings of sadness, irritability, and anger through-out the day. Pt. continues to report sleep disturbances. Pt. reported decrease in urge to purge or self-injury (last participating in self- injury/purging after breakfast on 08/24). Sleep hygiene and staff availability emphasized. Pt. motivated for tx but discharged focused secondary to being worried about her sisters. Patient aware that 16 year old sisters cannot be allowed to visit patient (minors) but requested that she be allowed to FaceTime sisters during visitation on 08/26, explaining that sister with intellectual disability is in distress secondary to not being able to see patient. This has been discussed with Dr. Melo and with Nurse Sales Agent Protective Service Kristina Hernandez who is permitting patient to FaceTime sisters in art room using older brothers tablet and with staff member present on 08/26. This is to be communicated with nursing staff by Kristina Hernandez, as per Kristina Hernandez. Discussed with Family/SO: Yes Was Patient/Family/SO present at Treatment Team Meeting: Yes <Lionel Melo - Last Filed: 08/28/18 13:54> - Diagnosis (1) Depression Status: Acute Interventions: pharmacotherapy, psychotherapy 08/28/18 13:53
[2018-08-23 08:43] LABS: HDL CHOLESTEROL 76 MG/DL (30-70)
[2018-08-23 08:54] LABS: LDL CHOLESTEROL < 30 mg/dL (0-129)
[2018-08-23 08:56] LABS: T4 8.28 ug/dl (5.5-11.0)
--- NOTE | 2018-08-23 11:09 | CARD ---
APPROVED REPORT Date of service: 08/22/2018 EKG Measurement Heart [id number] <Conclusion> Sinus tachycardia Otherwise normal ECG
[2018-08-23] MEDS ORDERED: FLUoxetine Elix 20 MG/5 ML PO STA (13:08)
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
[2018-08-23] MEDS: Insulin Regular 100 units/ml SC SCH ×2 (18:07→21:11)
[2018-08-24 08:18] LABS: BASO % 0.4 % (0.0-2.0); EOS % 0.3 % (0.0-4.0); HEMOGLOBIN 13.5 g/dL (12.0-16.0); LYMPH # 0.9 K/uL (1.0-4.3); LYMPH % 12.9 % (20.0-40.0); MEAN CELL VOLUME 95.2 fl (81.0-99.0); MEAN CORPUSCULAR HEMOGLOBIN 33.2 pg (27.0-31.0); MEAN CORPUSCULAR HGB CONC 34.9 g/dL (33.0-37.0); MEAN PLATELET VOLUME 8.3 fl (7.2-11.7); MONO # 0.3 K/uL (0.0-0.8); MONO % 5.1 % (0.0-10.0); NEUT # 5.3 K/uL (1.8-7.0); NEUT % 81.3 % (50.0-75.0); NRBC % 0.2 % (0.0-0.0); RBC 4.06 Mil/uL (3.80-5.20); RED CELL DISTRIBUTION WIDTH 13.8 % (11.5-14.5); WHITE BLOOD COUNT 6.6 K/uL (4.8-10.8)
[2018-08-24] MEDS: Insulin Regular 100 units/ml SC SCH ×4 (08:18→22:00)
[2018-08-24 08:22] LABS: ALB/GLOB RATIO 1.1 (1.0-2.1); ALBUMIN 3.9 g/dL (3.5-5.0); ALT/SGPT 43 U/L (9-52); AST/SGOT 68 U/L (14-36); BLOOD UREA NITROGEN 6 mg/dl (7-17); CALCIUM 8.9 mg/dL (8.4-10.2); GFR NON-AFRICAN AMERICAN > 60
[2018-08-24] MEDS: Benzocaine/Menthol (Cepacol) Lozenge PO PRN (12:00)
--- NOTE | 2018-08-24 15:27 | PCM.PYCHPN ---
Psychiatric Progress Note - Psychiatric Progress Note Patient seen today, length of contact: pt evaluated discussed with team chart reviewed Patient Chief Complaint: I feel anxious and down Problems Identified/Issues Discussed: pt evaluated, continues to isolate herself in her room, reported feeling depressed and anxious, discussed increasing dose of prozac and neurontin gradually, denied side effects , encouraged to attend groups,motivational therapy provided in reference to cannabis use pt denied any current active thoughts of self harm on the unit, denied perceptual disturbances DSM 5 Symptoms Update: major depression generalized anxiety cannabis abuse Medication Change: Yes (increase prozac) Medical Record Reviewed: Yes Mental Status Examination - Cognitive Function Orientation: Person, Place, Situation Memory: Intact Attention: WNL Concentration: WNL Association: WNL Fund of Knowledge: [facility] [place] Decription of patient's judgement and insights: partial insight , fair judgment - Mood Mood: Depressed, Anxious - Affect Affect: Constricted, Depressed - Speech Speech: Soft - Formal Thought Process Formal Thought Process: No Impairment - Suicidal Ideation Suicidal Ideation: No - Homicidal Ideation Homicidal Ideation: No Goal/Treatment Plan - Goal/Treatment Plan Need for Continued Stay: Severe depression anxiety, Discharge may exacerbated symptoms Progress Toward Problem(s) and Goals/Treatment Plan: increase PROZAC 20MG DAILY, INCREASE GRADUALLY NEURONTIN 100MG TID CBT group and supportive therapy
--- NOTE | 2018-08-24 17:15 | CP.PCM.CON ---
History of Present Illness - History of Present Illness History of Present Illness: 23 year old female w/ PMHx of IDDM, depression, Bulimia Nervosa has presented to ED multiple times in past month with vomiting. Patient is avid cannabis user. Admitted to psych for depression. Has history of non-compliance with medications. Patient had urine culture collected, with gram neg kirill growth denies dysuria, heamturia, abdominal pain, headache. patient admits to sore throat and feeling warm no documented fever. no other complaints offered at this time meds: as per chart allergies: as per chart family hx: non contributory Review of Systems - Review of Systems All systems: reviewed and no additional remarkable complaints except (mentioned above) Past Patient History - Infectious Disease Hx of Infectious Diseases: None - Tetanus Immunizations Tetanus Immunization: Unknown - Past Medical History & Family History Past Medical History?: Yes Past Family History: Reviewed and not pertinent - Past Social History Smoking Status: Never Smoked - CARDIAC Hx Cardiac Disorders: No Hx Hypertension: No - PULMONARY Hx Tuberculosis: No - NEUROLOGICAL HX Cerebrovascular Accident: No Hx Seizures: No - HEENT Hx HEENT Problems: No - RENAL Hx Chronic Kidney Disease: Yes - ENDOCRINE/METABOLIC Hx Endocrine Disorders: Yes (DM type 1) - HEMATOLOGICAL/ONCOLOGICAL Hx Cancer: No Hx Human Immunodeficiency Virus (HIV): No - INTEGUMENTARY Hx Dermatological Problems: No - MUSCULOSKELETAL/RHEUMATOLOGICAL Hx Musculoskeletal Disorders: No - GASTROINTESTINAL Hx Gall Bladder Disease: Yes (CHOLECYSTECTOMY) - GENITOURINARY/GYNECOLOGICAL Hx Sexually Transmitted Disorders: No - PSYCHIATRIC Hx Substance Use: Yes (cannabis) - SURGICAL HISTORY Hx Cholecystectomy: Yes - ANESTHESIA Hx Anesthesia: Yes Hx Anesthesia Reactions: No Hx Malignant Hyperthermia: No Meds Allergies/Adverse Reactions: Allergies Allergy/AdvReac Type Severity Reaction Status Date / Time shellfish derived Allergy SWELLING Verified 08/22/18 15:01 - Medications Medications: Current Medications Acetaminophen (Tylenol 325mg Tab) 650 mg PO Q4 PRN PRN Reason: 4-7 pain Last Admin: 08/24/18 08:22 Dose: 650 mg Al Hydrox/Mg Hydrox/Simethicone (Maalox Plus 30 Ml) 30 ml PO Q4 PRN PRN Reason: Dyspepsia Benzocaine/Menthol (Cepacol Sore Throat) 1 paddy PO Q2 PRN PRN Reason: Sore Throat Last Admin: 08/24/18 12:00 Dose: 1 paddy Cephalexin Monohydrate (Keflex) 500 mg PO Q12 [facility]; Protocol Stop: 08/26/18 09:01 Last Admin: 08/24/18 12:00 Dose: 500 mg Diphenhydramine HCl (Benadryl) 50 mg IM Q6 PRN PRN Reason: Extrapyramidal S/S Unable PO Diphenhydramine HCl (Benadryl) 50 mg PO Q6 PRN PRN Reason: Extrapyramidal Symptoms Diphenhydramine HCl (Benadryl) 50 mg PO HS PRN PRN Reason: Sleep Last Admin: 08/23/18 23:30 Dose: 50 mg Fluoxetine HCl (Prozac) 10 mg PO DAILY [facility] Last Admin: 08/24/18 08:23 Dose: 10 mg Gabapentin (Neurontin) 100 mg PO TID [facility] Last Admin: 08/24/18 16:53 Dose: 100 mg Haloperidol (Haldol) 5 mg PO Q4 PRN PRN Reason: Agitation Haloperidol Lactate (Haldol) 5 mg IM Q4 PRN PRN Reason: Agitation, Unable to Take PO Insulin Detemir (Levemir) 12 units SC HS [facility] Insulin Human Regular (Humulin R) 0 units SC [facility]; Protocol Last Admin: 08/24/18 16:53 Dose: 2 units Loperamide HCl (Imodium) 4 mg PO Q6 PRN PRN Reason: Diarrhea Last Admin: 08/23/18 18:06 Dose: 4 mg Lorazepam (Ativan) 2 mg IM Q6 PRN PRN Reason: Anxiety/Agitation,Unable PO Lorazepam (Ativan) 1 mg PO Q8 PRN PRN Reason: Anxiety/Agitation Magnesium Hydroxide (Milk Of Magnesia) 30 ml PO HS PRN PRN Reason: Constipation Ondansetron HCl (Zofran Odt) 4 mg PO Q6H PRN PRN Reason: Nausea/Vomiting Last Admin: 08/24/18 14:58 Dose: 4 mg Pantoprazole Sodium (Protonix Ec Tab) 20 mg PO DAILY [facility] Trazodone HCl (Desyrel) 50 mg PO HS [facility] Last Admin: 08/23/18 21:10 Dose: 50 mg Physical Exam - Constitutional Appears: Non-toxic, No Acute Distress - Head Exam Head Exam: NORMAL INSPECTION - Eye Exam Eye Exam: Normal appearance - ENT Exam ENT Exam: Mucous Membranes Moist, Normal Exam - Neck Exam Neck exam: Positive for: Normal Inspection - Respiratory Exam Respiratory Exam: Clear to Auscultation Bilateral, NORMAL BREATHING PATTERN - Cardiovascular Exam Cardiovascular Exam: +S1, +S2 - GI/Abdominal Exam GI & Abdominal Exam: Soft - Extremities Exam Extremities exam: Positive for: normal inspection - Neurological Exam Neurological exam: Alert, Oriented x3 - Skin Skin Exam: Normal Color, Warm Results - Vital Signs Recent Vital Signs: Last Vital Signs Temp 97.1 F L 08/24/18 09:35 Pulse 117 H 08/24/18 09:35 Resp 20 08/24/18 09:35 BP 152/98 H 08/24/18 09:35 Pulse Ox 100 08/23/18 00:22 - Labs Result Diagrams: 08/24/18 07:30 08/24/18 07:30 Labs: Laboratory Results - last 24 hr 08/22/18 08/23/18 08/24/18 15:03 21:08 06:10 WBC RBC Hgb Hct MCV MCH MCHC RDW Plt Count MPV Neut % (Auto) Lymph % (Auto) [place] % (Auto) Eos % (Auto) Baso % (Auto) Neut # (Auto) Lymph # (Auto) [place] # (Auto) Eos # (Auto) Baso # (Auto) Sodium Potassium Chloride Carbon Dioxide Anion Gap BUN Creatinine Est GFR ( Amer) Est GFR (Non-Af Amer) POC Glucose (mg/dL) 295 H 228 H 190 H Random Glucose Hemoglobin A1c Calcium Total Bilirubin AST ALT Alkaline Phosphatase Total Protein Albumin Globulin Albumin/Globulin Ratio 08/24/18 08/24/18 08/24/18 07:30 07:30 07:30 WBC 6.6 RBC 4.06 Hgb 13.5 Hct 38.6 MCV 95.2 MCH 33.2 H MCHC 34.9 RDW 13.8 Plt Count 192 D MPV 8.3 Neut % (Auto) 81.3 H Lymph % (Auto) 12.9 L [place] % (Auto) 5.1 Eos % (Auto) 0.3 Baso % (Auto) 0.4 Neut # (Auto) 5.3 Lymph # (Auto) 0.9 L [place] # (Auto) 0.3 Eos # (Auto) 0.0 Baso # (Auto) 0.0 Sodium 135 Potassium 4.1 Chloride 95 L Carbon Dioxide 29 Anion Gap 15 BUN 6 L Creatinine 0.9 Est GFR ( Amer) > 60 Est GFR (Non-Af Amer) > 60 POC Glucose (mg/dL) Random Glucose 223 H Hemoglobin A1c 7.4 H Calcium 8.9 Total Bilirubin 1.3 AST 68 H D ALT 43 Alkaline Phosphatase 54 Total Protein 7.3 Albumin 3.9 Globulin 3.5 Albumin/Globulin Ratio 1.1 08/24/18 08/24/18 11:50 16:48 WBC RBC Hgb Hct MCV MCH MCHC RDW Plt Count MPV Neut % (Auto) Lymph % (Auto) [place] % (Auto) Eos % (Auto) Baso % (Auto) Neut # (Auto) Lymph # (Auto) [place] # (Auto) Eos # (Auto) Baso # (Auto) Sodium Potassium Chloride Carbon Dioxide Anion Gap BUN Creatinine Est GFR ( Amer) Est GFR (Non-Af Amer) POC Glucose (mg/dL) 230 H 215 H Random Glucose Hemoglobin A1c Calcium Total Bilirubin AST ALT Alkaline Phosphatase Total Protein Albumin Globulin Albumin/Globulin Ratio Assessment & Plan (1) Cannabinoid hyperemesis syndrome Status: Acute (2) Depression Status: Acute (3) Hyperglycemia Status: Acute (4) Urinary tract infection Status: Acute - Assessment and Plan (Free Text) Assessment: available diagnostic data reviewed start keflex start cepacol restart DM meds, starting with insulin long acting HS psych management rest of plan as ordered
[2018-08-25] MEDS: Benzocaine/Menthol (Cepacol) Lozenge PO PRN ×4 (06:21→22:04)
[2018-08-25] MEDS: Pantoprazole 20 mg EC Tab PO SCH (09:26)
[2018-08-25] MEDS: Insulin Regular 100 units/ml SC SCH ×4 (09:30→21:00)
--- NOTE | 2018-08-25 12:55 | PCM.PYCHPN ---
Psychiatric Progress Note - Psychiatric Progress Note Patient seen today, length of contact: pt evaluated discussed with team chart reviewed Patient Chief Complaint: I am trying to resist the urges to scratch myself and to purge Problems Identified/Issues Discussed: pt evaluated with treatment team, presenting with anxious mood and depressed affect, reported poor sleep, continues to have urges of self mutilation including scratching self and purging, continues to isolate herself and reporting poor sleep with early insomnia , CBT and supportive therapy provided, discussed increasing prozac and trazodone pt denied any current active suicidal thoughts on the unit, denied perceptual disturbances DSM 5 Symptoms Update: amjor depression PTSD bulimia nervosa Medication Change: Yes (increase prozac) Medical Record Reviewed: Yes Mental Status Examination - Cognitive Function Orientation: Person, Place, Situation Memory: Intact Attention: WNL Concentration: WNL Association: WNL Fund of Knowledge: WN Decription of patient's judgement and insights: partial insight , fair judgment - Mood Mood: Depressed, Anxious - Affect Affect: Constricted, Depressed - Speech Speech: Soft - Formal Thought Process Formal Thought Process: No Impairment - Suicidal Ideation Suicidal Ideation: No - Homicidal Ideation Homicidal Ideation: No Goal/Treatment Plan - Goal/Treatment Plan Need for Continued Stay: Severe depression anxiety, Discharge may exacerbated symptoms Progress Toward Problem(s) and Goals/Treatment Plan: increase PROZAC 20MG DAILY, INCREASE GRADUALLY NEURONTIN 100MG TID increase trazodone to 100mg qhs CBT group and supportive therapy
[2018-08-25] MEDS: Insulin Detemir 100 Units/ml Inj SC SCH (21:32)
[2018-08-26] MEDS: Pantoprazole 20 mg EC Tab PO SCH (09:01)
[2018-08-26] MEDS: Insulin Regular 100 units/ml SC SCH ×4 (09:02→21:13)
[2018-08-26] MEDS: Benzocaine/Menthol (Cepacol) Lozenge PO PRN ×3 (09:04→21:15)
[2018-08-26] MEDS: ARIPIPRAZOLE 1 MG/ML PO SCH (13:26)
--- NOTE | 2018-08-26 21:12 | PCM.PYCHPN ---
Psychiatric Progress Note - Psychiatric Progress Note Patient seen today, length of contact: pt evaluated discussed with team chart reviewed Patient Chief Complaint: I slept better but I am still anxious Problems Identified/Issues Discussed: pt evaluated , seen in her room, reported improved sleep with the increase in trazodone, continues to report low energy, poor motivation, discussed starting abilify 2mg,no reported side effects of prozac pt denied any current active suicidal thoughts on the unit, denied perceptual disturbances DSM 5 Symptoms Update: major depression post traumatic stress disorder bulimia nervosa Medication Change: Yes (increase prozac) Medical Record Reviewed: Yes Mental Status Examination - Cognitive Function Orientation: Person, Place, Situation Memory: Intact Attention: WNL Concentration: WNL Association: WNL Fund of Knowledge: WN Decription of patient's judgement and insights: partial insight , fair judgment - Mood Mood: Depressed, Anxious - Affect Affect: Constricted, Depressed - Speech Speech: Soft - Formal Thought Process Formal Thought Process: No Impairment - Suicidal Ideation Suicidal Ideation: No - Homicidal Ideation Homicidal Ideation: No Goal/Treatment Plan - Goal/Treatment Plan Need for Continued Stay: Severe depression anxiety, Discharge may exacerbated symptoms Progress Toward Problem(s) and Goals/Treatment Plan: prozac 20 mg daily abilify 2mg daily NEURONTIN 100MG TID trazodone to 100mg qhs CBT group and supportive therapy
[2018-08-26] MEDS: Insulin Detemir 100 Units/ml Inj SC SCH (21:13)
[2018-08-27] MEDS: Benzocaine/Menthol (Cepacol) Lozenge PO PRN ×2 (06:04→21:53)
--- NOTE | 2018-08-27 07:52 | PCM.PYCHPN ---
Psychiatric Progress Note - Psychiatric Progress Note Patient seen today, length of contact: Pt evaluated, case discussed w/ team, chart reviewed Patient Chief Complaint: Anxiety Problems Identified/Issues Discussed: Patient continues to report low mood, anxiety and has thoughts of binging and purging but reports that she has not engaged in these behaviors. She reports poor sleep at night. No adverse effects to medications reported. Medication Change: No Medical Record Reviewed: Yes Consults ordered or reviewed: Medicine Mental Status Examination - Cognitive Function Orientation: Person, Place, Situation Memory: Intact Attention: WNL Concentration: WNL Association: WNL Fund of Knowledge: [facility] Decription of patient's judgement and insights: Improving I/J - Mood Mood: Depressed, Anxious - Affect Affect: Constricted - Speech Speech: Soft - Formal Thought Process Formal Thought Process: No Impairment Psychotic Thoughts and Behaviors: NO AH/VH/paranoia/delusions - Suicidal Ideation Suicidal Ideation: No - Homicidal Ideation Homicidal Ideation: No Goal/Treatment Plan - Goal/Treatment Plan Need for Continued Stay: Severe depression anxiety, Discharge may exacerbated symptoms Progress Toward Problem(s) and Goals/Treatment Plan: MDD, PTSD, Bulimia Nervosa -Continue current medications -Individual and group therapy -Psychoeducation -Disposition planning
[2018-08-27] MEDS: Pantoprazole 20 mg EC Tab PO SCH (08:55)
[2018-08-27] MEDS: ARIPIPRAZOLE 1 MG/ML PO SCH (08:56)
[2018-08-27] MEDS: Insulin Regular 100 units/ml SC SCH ×4 (09:00→21:38)
[2018-08-27] MEDS: Tmp-Smz 800 mg-160 mg DS Tab PO SCH ×2 (13:55→21:37)
[2018-08-27] MEDS: Insulin Detemir 100 Units/ml Inj SC SCH (21:38)
[2018-08-28] MEDS: Tmp-Smz 800 mg-160 mg DS Tab PO SCH ×2 (09:25→21:27)
[2018-08-28] MEDS: ARIPIPRAZOLE 1 MG/ML PO SCH (09:26)
[2018-08-28] MEDS: Pantoprazole 20 mg EC Tab PO SCH (09:26)
[2018-08-28] MEDS: Insulin Regular 100 units/ml SC SCH ×4 (09:30→21:15)
[2018-08-28 10:30] VITALS: PULSE 107
--- NOTE | 2018-08-28 14:02 | PCM.PYCHPN ---
Psychiatric Progress Note - Psychiatric Progress Note Patient seen today, length of contact: Pt evaluated, case discussed w/ team, chart reviewed Patient Chief Complaint: I still get urges to scratch myself but I try to control them Problems Identified/Issues Discussed: pt evaluated , reported continues to feel depressed and anxious when she thinks about her responsibilities on the outside, pt also continues to report urges of self harm by scratching her skin CBT provided discussing with patient healthy coping skills with stress other than self harm, discussed increasing abilify and prozac, encouraged pt to attend groups pt denied any current perceptual disturbances, denied homicidal ideation DSM 5 Symptoms Update: major depression PTSD bulimia nervosa Medication Change: Yes (increase prozac) Medical Record Reviewed: Yes Mental Status Examination - Cognitive Function Orientation: Person, Place, Situation Memory: Intact Attention: WNL Concentration: WNL Association: WNL Fund of Knowledge: WNL - Mood Mood: Depressed, Anxious - Affect Affect: Constricted - Speech Speech: Soft - Formal Thought Process Formal Thought Process: No Impairment - Suicidal Ideation Suicidal Ideation: No - Homicidal Ideation Homicidal Ideation: No Goal/Treatment Plan - Goal/Treatment Plan Need for Continued Stay: Severe depression anxiety, Discharge may exacerbated symptoms Progress Toward Problem(s) and Goals/Treatment Plan: increase prozac 30 mg daily increase abilify 5mg daily NEURONTIN 100MG TID trazodone to 100mg qhs CBT group and supportive therapy
[2018-08-28] MEDS: Insulin Detemir 100 Units/ml Inj SC SCH ×2 (21:15→21:27)
[2018-08-29] MEDS: Tmp-Smz 800 mg-160 mg DS Tab PO SCH ×2 (09:44→21:37)
[2018-08-29] MEDS: Pantoprazole 20 mg EC Tab PO SCH (09:44)
[2018-08-29] MEDS: Insulin Regular 100 units/ml SC SCH ×4 (09:47→22:13)
--- NOTE | 2018-08-29 12:55 | PCM.PYCHPN ---
Psychiatric Progress Note - Psychiatric Progress Note Patient seen today, length of contact: Pt evaluated, case discussed w/ team, chart reviewed Patient Chief Complaint: I slept better Problems Identified/Issues Discussed: pt evaluated , seen in day room, reported improved sleep, continues to have episodes of irritability, CBT provided for anger management, no reported side effects with medications, denied any current urges of self harm pt denied any current perceptual disturbances, denied homicidal ideation DSM 5 Symptoms Update: major depression ptsd bulimia nervosa Medication Change: No Medical Record Reviewed: Yes Mental Status Examination - Cognitive Function Orientation: Person, Place, Situation Memory: Intact Attention: WNL Concentration: WNL Association: WN Fund of Knowledge: WN - Mood Mood: Depressed, Anxious - Affect Affect: Constricted - Speech Speech: Soft - Formal Thought Process Formal Thought Process: No Impairment - Suicidal Ideation Suicidal Ideation: No - Homicidal Ideation Homicidal Ideation: No Goal/Treatment Plan - Goal/Treatment Plan Need for Continued Stay: Severe depression anxiety, Discharge may exacerbated symptoms Progress Toward Problem(s) and Goals/Treatment Plan: prozac 30 mg daily abilify 5mg daily NEURONTIN 100MG TID trazodone to 100mg qhs CBT group and supportive therapy
[2018-08-29] MEDS: Benzocaine/Menthol (Cepacol) Lozenge PO PRN ×4 (13:06→22:10)
--- NOTE | 2018-08-29 17:15 | CP.PCM.PN ---
Subjective - Date & Time of Evaluation Date of Evaluation: 08/29/18 Time of Evaluation: 11:00 - Subjective Subjective: Patient is doing a lot better Has better sleep and appetite Has no headaches Has no dizziness Objective - Vital Signs/Intake and Output Vital Signs (last 24 hours): Temp Pulse Resp BP Pulse Ox 96.9 F L 107 H 18 131/85 100 08/28/18 17:00 08/28/18 17:00 08/28/18 17:00 08/28/18 17:00 08/23/18 00:22 - Medications Medications: Current Medications Acetaminophen (Tylenol 325mg Tab) 650 mg PO Q4 PRN PRN Reason: 4-7 pain Last Admin: 08/29/18 12:25 Dose: 650 mg Al Hydrox/Mg Hydrox/Simethicone (Maalox Plus 30 Ml) 30 ml PO Q4 PRN PRN Reason: Dyspepsia Aripiprazole (Abilify) 5 mg PO DAILY [facility] Last Admin: 08/29/18 09:44 Dose: 5 mg Benzocaine/Menthol (Cepacol Sore Throat) 1 paddy PO Q2 PRN PRN Reason: Sore Throat Last Admin: 08/29/18 15:24 Dose: 1 paddy Diphenhydramine HCl (Benadryl) 50 mg IM Q6 PRN PRN Reason: Extrapyramidal S/S Unable PO Diphenhydramine HCl (Benadryl) 50 mg PO Q6 PRN PRN Reason: Extrapyramidal Symptoms Diphenhydramine HCl (Benadryl) 50 mg PO HS PRN PRN Reason: Sleep Last Admin: 08/28/18 21:28 Dose: 50 mg Fluoxetine HCl (Prozac) 30 mg PO DAILY [facility] Last Admin: 08/29/18 09:44 Dose: 30 mg Gabapentin (Neurontin) 100 mg PO TID [facility] Last Admin: 08/29/18 16:54 Dose: 100 mg Haloperidol (Haldol) 5 mg PO Q4 PRN PRN Reason: Agitation Haloperidol Lactate (Haldol) 5 mg IM Q4 PRN PRN Reason: Agitation, Unable to Take PO Insulin Detemir (Levemir) 12 units SC [facility] Last Admin: 08/28/18 21:27 Dose: 12 units Insulin Human Regular (Humulin R) 0 units SC [facility]; Protocol Last Admin: 08/29/18 16:55 Dose: 1 units Loperamide HCl (Imodium) 4 mg PO Q6 PRN PRN Reason: Diarrhea Last Admin: 08/23/18 18:06 Dose: 4 mg Lorazepam (Ativan) 2 mg IM Q6 PRN PRN Reason: Anxiety/Agitation,Unable PO Lorazepam (Ativan) 1 mg PO Q8 PRN PRN Reason: Anxiety/Agitation Magnesium Hydroxide (Milk Of Magnesia) 30 ml PO HS PRN PRN Reason: Constipation Ondansetron HCl (Zofran Odt) 4 mg PO Q6H PRN PRN Reason: Nausea/Vomiting Last Admin: 08/29/18 10:35 Dose: 4 mg Pantoprazole Sodium (Protonix Ec Tab) 20 mg PO DAILY [facility] Last Admin: 08/29/18 09:44 Dose: 20 mg Trazodone HCl (Desyrel) 100 mg PO HS [facility] Last Admin: 08/28/18 21:27 Dose: 100 mg Trimethoprim/Sulfamethoxazole (Bactrim Ds Tab) 1 tab PO Q12 [facility]; Protocol Last Admin: 08/29/18 09:44 Dose: 1 tab - Labs Labs: 08/24/18 07:30 08/24/18 07:30 - Head Exam Head Exam: NORMAL INSPECTION - Eye Exam Eye Exam: Normal appearance - ENT Exam ENT Exam: Mucous Membranes Moist - Respiratory Exam Respiratory Exam: Clear to Ausculation Bilateral - Cardiovascular Exam Cardiovascular Exam: REGULAR RHYTHM - GI/Abdominal Exam GI & Abdominal Exam: Normal Bowel Sounds - Neurological Exam Neurological Exam: Awake, Oriented x3 Assessment and Plan (1) Diabetes mellitus type 2 in obese Status: Acute (2) Depression Status: Acute (3) Mood disorder Status: Acute - Assessment and Plan (Free Text) Plan: Cont meds Advised to discuss with PMD re her DM That she may be a type 2 diabetic since both parents are diabetics, so she can be started on po hypoglycemics.
[2018-08-29 18:13] VITALS: BP 152/77; RESP 20; TEMP 97.8
[2018-08-29] MEDS: Insulin Detemir 100 Units/ml Inj SC SCH (21:37)
[2018-08-30] MEDS: Pantoprazole 20 mg EC Tab PO SCH (11:11)
[2018-08-30] MEDS: Tmp-Smz 800 mg-160 mg DS Tab PO SCH (11:11)
[2018-08-30] MEDS: Insulin Regular 100 units/ml SC SCH (11:14)
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
== END 2018-08-30 14:01 | disposition home or self-care (01) | DRG 430 ==
LOC: H.ER 14:59 → H.ERHOLD 21:38 → H.PSYCH 08-23 00:34
PROVIDERS: ADMIT Psychiatry & Neurology Psychiatry; ATTEND Psychiatry & Neurology Psychiatry
PROC: HZ57ZZZ Individual Psychotherapy for Substance Abuse Treatment, Motivational Enhancement (ICD-10-PCS; principal; 2018-08-22)
PROC: GZHZZZZ Group Psychotherapy (ICD-10-PCS; 2018-08-22)
PROC: GZ58ZZZ Individual Psychotherapy, Cognitive-Behavioral (ICD-10-PCS; 2018-08-22)
PROC: GZ56ZZZ Individual Psychotherapy, Supportive (ICD-10-PCS; 2018-08-22)
DX: F33.2 Major depressive disorder, recurrent severe without psychotic features (principal); N39.0 Urinary tract infection, site not specified; E11.22 Type 2 diabetes mellitus with diabetic chronic kidney disease; E11.65 Type 2 diabetes mellitus with hyperglycemia; N18.9 Chronic kidney disease, unspecified; R45.851 Suicidal ideations; Z79.4 Long term (current) use of insulin; F50.2 Bulimia nervosa; J45.909 Unspecified asthma, uncomplicated; F43.10 Post-traumatic stress disorder, unspecified; F41.1 Generalized anxiety disorder; F12.188 Cannabis abuse with other cannabis-induced disorder; Z91.013 Allergy to seafood

== ENCOUNTER 2018-10-11 13:03 | Inpatient (IN) | payer MEDICAID, OTHER ==
[2018-10-11 13:03] VITALS: BMI 28.6
[2018-10-11] MEDS ORDERED: Sodium Chloride 0.9% 1,000 ML IV STA (14:36)
--- NOTE | 2018-10-11 14:51 | ED PDOC ---
HPI: Abdomen Time Seen by Provider: 10/11/18 14:08 Chief Complaint (Nursing): Abdominal Pain Chief Complaint (Provider): Abdominal Pain and Depression History Per: Patient History/Exam Limitations: no limitations Onset/Duration Of Symptoms: Unknown Current Symptoms Are (Timing): Still Present Location Of Pain/Discomfort: Epigastric Quality Of Discomfort: "Pain" Associated Symptoms: Vomiting, Diarrhea Additional Complaint(s): 23 year old female who has a history of depression and is insulin-dependent diabetic presents to the ED for an evaluation of abdominal pain and depression for a long time. Patient reports she has stopped taking her medications, Abilify, Prozac, Neurontin and Insulin for a long time. Patient is unsure of her blood sugar. She states she makes herself vomit and has diarrhea and nausea onset for couple days. Otherwise, she denies fever, shortness of breath, body a ceci, suicidal ideation or homicidal ideation. PMD: Dr. Anderson (Non [facility] Provider) Abnormal Vaginal Bleeding: No Past Medical History Reviewed: Historical Data, Nursing Documentation, Vital Signs Vital Signs: Last Vital Signs Temp 98 F 10/11/18 13:51 Pulse 115 H 10/11/18 13:51 Resp 18 10/11/18 13:51 BP 157/96 H 10/11/18 13:51 Pulse Ox 98 10/11/18 13:51 - Medical History PMH: Asthma, Depression, Gall Bladder Disease (CHOLECYSTECTOMY), Kidney Stones, Chronic Kidney Disease Denies: Atrial Fibrillation, Cardia Arrhythmia, CHF, Diabetes, Hepatitis, HIV, HTN, Seizures, Sexually Transmitted Disease - Surgical History Surgical History: Cholecystectomy - Family History Family History: States: Unknown Family Hx - Social History Current smoker - smoking cessation education provided: No Alcohol: None Drugs: Cannabis - Immunization History Hx Tetanus Toxoid Vaccination: Yes Hx Influenza Vaccination: Yes Hx Pneumococcal Vaccination: Yes - Home Medications Home Medications: Ambulatory Orders Medication Instructions Recorded Insulin Aspart, Recombinant 15 unit SQ TID 10/16/17 [Novolog] Insulin Glargine, Recombina 12 units SQ HS 10/16/17 [Lantus] ARIPiprazole [Abilify] 5 mg PO DAILY 30 Days #30 tab 08/30/18 FLUoxetine [Prozac] 30 mg PO DAILY 30 Days #90 cap 08/30/18 Gabapentin [Neurontin] 100 mg PO TID 30 Days #90 cap 08/30/18 traZODone [Desyrel] 100 mg PO HS 30 Days #30 tab 08/30/18 - Allergies Allergies/Adverse Reactions: Allergies Allergy/AdvReac Type Severity Reaction Status Date / Time shellfish derived Allergy SWELLING Verified 08/22/18 15:01 Review of Systems ROS Statement: Except As Marked, All Systems Reviewed And Found Negative Constitutional: Negative for: Fever, Other (body aches ) Respiratory: Negative for: Shortness of Breath Gastrointestinal: Positive for: Nausea, Vomiting, Abdominal Pain, Diarrhea Psych: Positive for: Depression. Negative for: Suicidal ideation, Other (homicidal ideation ) Physical Exam - Reviewed Nursing Documentation Reviewed: Yes Vital Signs Reviewed: Yes - Physical Exam Appears: Positive for: Well, Non-toxic, No Acute Distress Head Exam: Positive for: ATRAUMATIC, NORMAL INSPECTION, NORMOCEPHALIC Skin: Positive for: Normal Color, Warm, Dry. Negative for: Rash Eye Exam: Positive for: EOMI, Normal appearance, PERRL ENT: Positive for: Normal ENT Inspection Neck: Positive for: Normal, Painless ROM, Supple. Negative for: Decreased ROM Cardiovascular/Chest: Positive for: Regular Rate, Rhythm. Negative for: Murmur Respiratory: Positive for: Normal Breath Sounds. Negative for: Decreased Breath Sounds, Respiratory Distress Gastrointestinal/Abdominal: Positive for: Soft, Tenderness (gastritis ) Back: Positive for: Normal Inspection. Negative for: L CVA Tenderness, R CVA Tenderness Extremity: Positive for: Normal ROM. Negative for: Tenderness, Pedal Edema, Deformity Neurological/Psych: Positive for: Awake, Alert, Normal Tone, Oriented (x3) - Laboratory Results Result Diagrams: 10/11/18 15:12 10/11/18 15:12 - ECG O2 Sat by Pulse Oximetry: 98 (RA) Pulse Ox Interpretation: Normal Medical Decision Making Medical Decision Making: Time: 1434 Impression: vomiting, abdominal pain, depression Differential Diagnosis: gastritis, pancreatitis, uncontrolled diabetes, UTI Plan: CMP Lipase stat ED urine ED urine dipstick CBC w/ differential Glucose, POC Normal saline 1000 mls/hr Pepcid 20mg Zofran Inj 4mg IV insertion Accucheck Reevaluation 1617: Patient still has pain. Morphine IV and Abdomen & Pelvis CT ordered 1900: Patient endorsed to Dr. Camarena pending crisis evaluation and CT scan Scribe Attestation: Documented by Ralph Tyson, acting as a scribe for Ayaan Bhat MD Provider Scribe Attestation: All medical record entries made by the Scribe were at my direction and personally dictated by me. I have reviewed the chart and agree that the record accurately reflects my personal performance of the history, physical exam, medical decision making, and the department course for this patient. I have also personally directed, reviewed, and agree with the discharge instructions and disposition. Disposition - Clinical Impression Clinical Impression: Major depressive disorder, Eating disorder, unspecified, Abdominal pain in female - Patient ED Disposition Is Patient to be Admitted: Transfer of Care Counseled Patient/Family Regarding: Studies Performed, Diagnosis - Disposition Disposition: Transfer of Care Disposition Time: 19:00 Condition: STABLE Patient Signed Over To: Jeff Camarena (pending crisis evaluation and CT scan )
[2018-10-11 15:58] LABS: BASO % 0.2 % (0.0-2.0); HEMOGLOBIN 13.8 g/dL (12.0-16.0); LYMPH # 0.5 K/uL (1.0-4.3); LYMPH % 3.6 % (20.0-40.0); MEAN CELL VOLUME 93.5 fl (81.0-99.0); MEAN CORPUSCULAR HEMOGLOBIN 31.8 pg (27.0-31.0); MEAN PLATELET VOLUME 8.2 fl (7.2-11.7); MONO # 0.6 K/uL (0.0-0.8); MONO % 3.7 % (0.0-10.0); NEUT % 92.5 % (50.0-75.0); PLATELET COUNT 301 K/uL (130-400); RBC 4.33 Mil/uL (3.80-5.20); RED CELL DISTRIBUTION WIDTH 14.1 % (11.5-14.5); WHITE BLOOD COUNT 15.2 K/uL (4.8-10.8)
[2018-10-11 16:00] LABS: ALB/GLOB RATIO 1.3 (1.0-2.1); ALBUMIN 4.6 g/dL (3.5-5.0); ALT/SGPT 41 U/L (9-52); AST/SGOT 36 U/L (14-36); BLOOD UREA NITROGEN 14 mg/dl (7-17); CALCIUM 9.8 mg/dL (8.4-10.2); GFR NON-AFRICAN AMERICAN > 60; LIPASE 77 U/L (23-300)
[2018-10-11 16:56] LABS: BANDS 2 % (0-2); LYMPHOCYTE 6 % (20-50); MONOCYTE 7 % (0-10); NEUTROPHIL 85 % (42-75); TOTAL CELLS COUNTED 100
[2018-10-11 16:57] LABS: PLATELET ESTIMATE NORMAL (NORMAL)
[2018-10-11] MEDS ORDERED: Insulin Regular 100 units/ml SC STA (18:16)
[2018-10-11] MEDS ORDERED: Insulin Regular 100 units/ml ONE (18:21)
[2018-10-11 18:45] LABS: SQUAMOUS EPITHIAL 32 /hpf (0-5); URINE BILIRUBIN NEGATIVE (NEGATIVE); URINE BLOOD MODERATE (NEGATIVE); URINE CLARITY CLOUDY (Clear); URINE COLOR YELLOW (YELLOW); URINE GLUCOSE (UA) >=500 mg/dL (NEGATIVE); URINE HYALINE CAST 0-2 /hpf (0-2); URINE LEUKOCYTE ESTERASE NEG Leu/uL (Negative); URINE PROTEIN >=500 mg/dL (NEGATIVE); URINE UROBILINOGEN 0.2-1.0 mg/dL (0.2-1.0)
--- NOTE | 2018-10-11 19:18 | ED PDOC ---
- Laboratory Results Result Diagrams: 10/11/18 15:12 10/11/18 15:12 Lab Results: Total Bilirubin 0.5 mg/dl (0.2-1.3) 10/11/18 15:12 AST 36 U/L (14-36) D 10/11/18 15:12 ALT 41 U/L (9-52) 10/11/18 15:12 Alkaline Phosphatase 55 U/L (38-126) 10/11/18 15:12 Total Protein 8.2 G/DL (6.3-8.2) 10/11/18 15:12 Albumin 4.6 g/dL (3.5-5.0) 10/11/18 15:12 Globulin 3.6 gm/dL (2.2-3.9) 10/11/18 15:12 Albumin/Globulin Ratio 1.3 (1.0-2.1) 10/11/18 15:12 Lipase 77 U/L (23-300) 10/11/18 15:12 Urine Color Yellow (YELLOW) 10/11/18 18:29 Urine Clarity Cloudy (Clear) 10/11/18 18:29 Urine pH 7.0 (5.0-8.0) 10/11/18 18:29 Ur Specific [place] 1.030 (1.003-1.030) 10/11/18 18:29 Urine Protein >=500 mg/dL (NEGATIVE) 10/11/18 18:29 Urine Glucose (UA) >=500 mg/dL (NEGATIVE) 10/11/18 18:29 Urine Ketones 20 mg/dL (NEGATIVE) 10/11/18 18:29 Urine Blood Moderate (NEGATIVE) 10/11/18 18:29 Urine Nitrate Negative (NEGATIVE) 10/11/18 18:29 Urine Bilirubin Negative (NEGATIVE) 10/11/18 18:29 Urine Urobilinogen 0.2-1.0 mg/dL (0.2-1.0) 10/11/18 18:29 Ur Leukocyte Esterase Neg [place]/uL (Negative) 10/11/18 18:29 Urine RBC (Auto) 4 /hpf (0-3) H 10/11/18 18:29 Urine Microscopic WBC 4 /hpf (0-5) 10/11/18 18:29 Ur Squamous Epith Cells 32 /hpf (0-5) H 10/11/18 18:29 Hyaline Casts 0-2 /hpf (0-2) 10/11/18 18:29 - ECG O2 Sat by Pulse Oximetry: 98 (RA) Pulse Ox Interpretation: Normal Medical Decision Making Medical Decision Makin:00 Patient care endorsed to me by Dr. Bhat pending crisis evaluation and CT scan. 21:34 EXAM: CT Abdomen and Pelvis with IV contrast CLINICAL HISTORY: Abd pain TECHNIQUE: Axial computed tomography images of the abdomen and pelvis with intravenous contrast. 801.03 mGy-cm CONTRAST: With; [id number] 90ML COMPARISON: None provided. FINDINGS: LUNG BASES: The lung bases appear clear. No pleural effusions are seen. LIVER: There is diffuse hepatic hypoattenuation compatible with fatty infiltration. The liver is enlarged, 21 cm. GALLBLADDER AND BILE DUCTS: S/p cholecystectomy. Surgical clips are noted in the gallbladder fossa. PANCREAS: Unremarkable. SPLEEN: Unremarkable. ADRENAL GLANDS: Unremarkable. KIDNEYS, URETERS, AND BLADDER: The kidneys appear within normal limits. There is no hydronephrosis or hydr oureter. No urinary calculi are seen. STOMACH AND BOWEL: Thick walled fluid filled duodenum and loops of jejunum as well as ileum compatible with enteritis. Thick walled fluid filled colon is noted with involvement of all segments compatible with pancolitis. APPENDIX: No evidence of acute appendicitis on CT examination. PERITONEUM: No free fluid. No free air. LYMPH NODES: No lymphadenopathy is evident. REPRODUCTIVE: Unremarkable as visualized. VASCULATURE: No evidence of abdominal aortic aneurysm. BONES: No aggressive appearing osseous lesion. No acute osseous pathology evident. MISCELLANEOUS: Infectious and inflammatory etiologies are considered. IMPRESSION: Fatty liver. Enterocolitis. Infectious and inflammatory etiologies are considered. 23:32 Patient reports she is feeling much better on reevaluation. She states she knows she has a problem with self-inducing vomiting. She used to take Abilify, Neurontin, Prozac, and Trazadone but has been out of medications for weeks. Patient is requesting crisis evaluation for depression and bulimia. Ct findings are likely a result of long-standing self-induced vomiting, not concerned for acute infectious etiology, antibiotics are not indicated at this time, supportive care recommended. Patient is medically cleared for psychiatric admission. 1:00 Patient walking around ER and drinking water without difficulty. Patient was evaluated by crisis and accepted by Dr. Myles with diagnosis of Major Depressive Disorder, Recurrent and Eating Disorder, NOS Scribe Attestation: Documented by Ralph Tyson, acting as a scribe for Jeff Camarena MD Provider Scribe Attestation: All medical record entries made by the Scribe were at my direction and personally dictated by me. I have reviewed the chart and agree that the record accurately reflects my personal performance of the history, physical exam, medical decision making, and the department course for this patient. I have also personally directed, reviewed, and agree with the discharge instructions and disposition. Disposition - Clinical Impression Clinical Impression: Major depressive disorder, Eating disorder, unspecified - POA Present On Arrival: None - Disposition Disposition: Admitted as In-Patient Disposition Time: 01:00 Condition: FAIR
[2018-10-11] MEDS ORDERED: Iohexol 300 100 ML IJ ONE (20:49)
[2018-10-11] MEDS ORDERED: Sodium Chloride 0.9% 50 ML IV ONE (20:49)
[2018-10-11] MEDS ORDERED: Alum-Mag Hydrox-Simethicone Susp (30 mL) PO ONE (23:06)
[2018-10-11 23:37] VITALS: O2SAT 98
[2018-10-12] MEDS ORDERED: Sodium Chloride 0.9% 1,000 ML IV STA (00:53)
[2018-10-12 00:56] LABS: PHENCYCLIDINE, UR NEGATIVE (NEGATIVE)
[2018-10-12 01:03] LABS: BARBITURATES, UR NEGATIVE (NEGATIVE); BENZODIAZEPINES, UR NEGATIVE (NEGATIVE); OPIATES, UR NEGATIVE (NEGATIVE)
[2018-10-12] MEDS ORDERED: DiphenhydrAMINE 50 mg/ml Inj IM PRN (03:27)
[2018-10-12] MEDS ORDERED: Magnesium Hydroxide Susp 30 ml UD PO PRN (03:27)
--- NOTE | 2018-10-12 03:46 | PCM.BM ---
<Brianna Retana - Last Filed: 10/12/18 03:44> Treatment Plan Problems - Problems identified on initial assessmt Medication Nonadherence Date Initiated: 10/12/18 Time Initiated: 03:44 Assessment reference: NA Less than Optimal nutrition Date Initiated: 10/12/18 Time Initiated: 03:45 Assessment reference: NA Status: Active Feelings of Worthlessness Date Initiated: 10/12/18 Time Initiated: 03:46 Assessment reference: NA Status: Active Altered Sleep Patterns Date Initiated: 10/12/18 Time Initiated: 03:46 Assessment reference: NA Status: Active Treatment assets and liabiliti Patient Assests: cooperative, resourceful, self-reliant, ADL independent, negotiates basic needs, good past tx response, cognitively intact Patient Liabilities: financial problems, poor support system, substance abuse, medical problems - Milieu Protocol Maintain good personal hygiene: daily Encourage regular showers, other Remind patient to perform daily oral care (prn), other Assist patient to perform ADL's (prn) Conduct patient checks and document Observation sheet: Q15 minutes Maintain personal safety: every shift Educate patient to report safety concerns to staff, every shift Monitor environment for contraband/sharps Medication safety: Monitor for expected outcome, potential side effects: every shift, Assess barriers to learning: every shift, Assess readiness for medication education: every shift <Nieves Quinones - Last Filed: 10/12/18 14:27> Treatment assets and liabiliti Patient Assests: adapts well, cooperative, educated (Pt. 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 ), resourceful, self-reliant, ADL independent, good support system (Pt. reports having a loving relationship with 4 siblings (2 brothers- age 25/21, twin sisters- age 16- 1 sister with developmental delays). Pt reports having assisted with raising siblings since age 9. Pt. reports receiving full custody of twin sisters following mothers . Pt. reports having supportive friends and a circumstantially supportive relationship with aunt. ), negotiates basic needs, good past tx response, cognitively intact Patient Liabilities: physical pain, relationship conflicts (Pt. reports discord with recent ex-boyfriend. ), medical problems ( Pt. reports hx of asthma, cholecystectomy, diabetes, kidney stones, and chronic kidney disease. Pt. reports non-adherence with medical medications x6 days. Pt. reports recent rosalind rrhea and nausea. ), legal issue (Pt. scheduled to appear in court regarding custody of twin sisters on 10/16. Custody recently taken from pt. and given to aunt.) Family Contact Family involvement: Family/SO is involved Family contact: Patient agrees to contact, Family has been contacted by patient, Telephone contact initiated by staff Family contact name: Kyra [phone] Family contacted how many times per week?: 2 Family contact comment: Screw Machine Operator placed call to pts aunt (Kyra [phone]) to notify family of pts hospitalization, collect further collateral, and address family concerns, as requested by pt. Kyra reported not having seen pt. since Tuesday (10/08), as pt. has been living in an apartment of her own since September 22. Pts aunt reported having noted changes in pts mood (irritable, "down") but states pt denied any concerns/stressors when asked. Pts aunt explained that following pts discharge from 3, custody of her twin sisters was removed from pt. and given to aunt, secondary to pts inability to care for self while caring for siblings. This information was not provided by pt. at time of assessment with narrative writer. Pts aunt expressed concerns regarding pts non-adherence with tx recommendations and cannabis/ETOH abuse for means of self-medications. Pts aunt emphasized that family is supportive of pt and pts tx but stated "she's an adult and has to take the steps to care for herself." Screw Machine Operator to continue to provide family with clinical updates regarding pts progress on 3[facility] and discharge planning. The above was discussed with Dr. Melo. - Goals for Treatment Patient goals for treatment: Patient to continue stabilization on 3NP through medication management and group/supportive therapy to address sxs of depression (feelings of sadness,irritability, sleep disturbances), reduce urges to self- injure/purge, and eliminate SI. Patient to be encouraged to attend groups regularly to promote self-awareness, sobriety, impulse control and improve insight, compliance, coping skills and self-esteem. Patient to be provided with referral for appropriate level of aftercare to reduce risk of future hospitalizations and ensure safety in the community. Discharge/Continuing Care - Education Needs Education Needs: Family Medication, Family Diagnosis/Disease Process, Family Coping Skills, Family Community resources, Family Aftercare Safety Plan, Patient Medication, Patient Diagnosis/Disease Process, Patient Coping Skills, Patient Community resources, Patient Aftercare Safety Plan - Discharge Discharge Criteria: Tolerates medication w/o severe side effects, Free of Suicidal thoughts, Free of agitation, Normal sleep pattern, Ability to care for self, Reduction of target symptoms Discharge to:: Home <Shamir Walton - Last Filed: 10/13/18 13:40> Discharge/Continuing Care - Treatment Team Participation Patient/Family/SO Statement: 10/13/18 13:41 Pt was seen in treatment team on 10/13/18. Pt reported that she is feeling "alright." Pt reported that she feels up and down, but denied feeling depressed, but "sick." Dr. Melo discussed starting Neurontin again. Meseret reported that she stopped taking her medication because she felt better and did not follow up with outpatient care because it did not coordinate with her work schedule. Pt reported she is going for joint custody with her aunt for her minor siblings. Pt reported that her older brothers are leaving for the and her twin siblings will be moving to [place] with her aunt and she will miss them. Pt spoke of a court date on 10/16/18. Pt expressed sadness and spoke about her mother and her complicated medical history and her . Pt was open and honest and appeared goal and future oriented. Pt appeared depressed and her speech was at a normal rate and tone. Pt made appropriate eye contact and denied SI/HI and AVT hallucinations. Discussed with Family/SO: Yes Was Patient/Family/SO present at Treatment Team Meeting: Yes <Lionel Melo - Last Filed: 10/13/18 15:39> - Diagnosis (1) Major depressive disorder Status: Acute Interventions: pharmacotherapy/ prozac abilify psychotherapy 10/13/18 15:38 (2) Bulimia nervosa Status: Acute Interventions: 10/13/18 15:39 prozac cbt follow up on blood chemistry
[2018-10-12] MEDS: Alum-Mag Hydrox-Simethicone Susp (30 mL) PO PRN ×2 (08:06→21:04)
--- NOTE | 2018-10-12 10:18 | CP.PCM.CON ---
Past Patient History - Infectious Disease Hx of Infectious Diseases: None - Tetanus Immunizations Tetanus Immunization: Unknown - Past Medical History & Family History Past Medical History?: Yes - Past Social History Alcohol: None Drugs: Cannabis - CARDIAC Hx Cardiac Disorders: No Hx Hypertension: Yes - PULMONARY Hx Tuberculosis: No - NEUROLOGICAL HX Cerebrovascular Accident: No Hx Seizures: No - HEENT Hx HEENT Problems: No - RENAL Hx Chronic Kidney Disease: Yes - ENDOCRINE/METABOLIC Hx Endocrine Disorders: Yes Hx Diabetes Mellitus Type 1: Yes - HEMATOLOGICAL/ONCOLOGICAL Hx Cancer: No Hx Human Immunodeficiency Virus (HIV): No - INTEGUMENTARY Hx Dermatological Problems: Yes Other/Comment: Multiple open sores on her back d/t scratching - MUSCULOSKELETAL/RHEUMATOLOGICAL Hx Musculoskeletal Disorders: No - GASTROINTESTINAL Hx Gastrointestinal Disorders: No - GENITOURINARY/GYNECOLOGICAL Hx Sexually Transmitted Disorders: No - PSYCHIATRIC Hx Depression: Yes Hx Substance Use: Yes (MJ use daily) - SURGICAL HISTORY Hx Surgeries: Yes Hx Cholecystectomy: Yes Other/Comment: Ectopic 2017 - ANESTHESIA Hx Anesthesia: Yes Hx Anesthesia Reactions: No Hx Malignant Hyperthermia: No Meds Allergies/Adverse Reactions: Allergies Allergy/AdvReac Type Severity Reaction Status Date / Time shellfish derived Allergy SWELLING Verified 08/22/18 15:01 - Medications Medications: Current Medications Acetaminophen (Tylenol 325mg Tab) 650 mg PO Q4 PRN PRN Reason: pain 4-6 Al Hydrox/Mg Hydrox/Simethicone (Maalox Plus 30 Ml) 30 ml PO Q4 PRN PRN Reason: Dyspepsia Last Admin: 10/12/18 08:06 Dose: 30 ml Ciprofloxacin (Cipro) 500 mg PO Q12 LAILA; Protocol Stop: 10/17/18 10:31 Diphenhydramine HCl (Benadryl) 50 mg IM Q6 PRN PRN Reason: Extrapyramidal S/S Unable PO Diphenhydramine HCl (Benadryl) 50 mg PO Q6 PRN PRN Reason: Extrapyramidal Symptoms Diphenhydramine HCl (Benadryl) 50 mg PO HS PRN PRN Reason: Sleep Last Admin: 10/12/18 03:50 Dose: 50 mg Haloperidol (Haldol) 5 mg PO Q4 PRN PRN Reason: Agitation Haloperidol Lactate (Haldol) 5 mg IM Q4 PRN PRN Reason: Agitation, Unable to Take PO Lorazepam (Ativan) 2 mg IM Q6 PRN PRN Reason: Anxiety/Agitation,Unable PO Lorazepam (Ativan) 1 mg PO Q8 PRN PRN Reason: Anxiety/Agitation Magnesium Hydroxide (Milk Of Magnesia) 30 ml PO HS PRN PRN Reason: Constipation Ondansetron HCl (Zofran Odt) 4 mg PO Q6H PRN PRN Reason: Nausea/Vomiting Last Admin: 10/12/18 06:49 Dose: 4 mg Results - Vital Signs Recent Vital Signs: Last Vital Signs Temp 98.4 F 10/12/18 03:08 Pulse 92 H 10/12/18 03:41 Resp 18 10/12/18 03:41 BP 147/85 10/12/18 03:08 Pulse Ox 98 10/12/18 03:15 - Labs Result Diagrams: 10/11/18 15:12 10/11/18 15:12 Labs: Laboratory Results - last 24 hr 10/11/18 10/11/18 10/11/18 14:38 15:12 15:12 WBC 15.2 H D RBC 4.33 Hgb 13.8 Hct 40.5 MCV 93.5 MCH 31.8 H MCHC 34.0 RDW 14.1 Plt Count 301 D MPV 8.2 Neut % (Auto) 92.5 H Lymph % (Auto) 3.6 L [place] % (Auto) 3.7 Eos % (Auto) 0.0 Baso % (Auto) 0.2 Neut # (Auto) 14.0 H Lymph # (Auto) 0.5 L [place] # (Auto) 0.6 Eos # (Auto) 0.0 Baso # (Auto) 0.0 Neutrophils % (Manual) 85 H Band Neutrophils % 2 Lymphocytes % (Manual) 6 L Monocytes % (Manual) 7 Platelet Estimate Normal Macrocytosis (manual) Slight Sodium 142 Potassium 3.7 Chloride 96 L Carbon Dioxide 33 H Anion Gap 17 BUN 14 Creatinine 0.8 Est GFR ( Amer) > 60 Est GFR (Non-Af Amer) > 60 POC Glucose (mg/dL) 341 H Random Glucose 350 H Calcium 9.8 Total Bilirubin 0.5 AST 36 D ALT 41 Alkaline Phosphatase 55 Total Protein 8.2 Albumin 4.6 Globulin 3.6 Albumin/Globulin Ratio 1.3 Lipase 77 Urine Color Urine Clarity Urine pH Ur Specific Leslie Urine Protein Urine Glucose (UA) Urine Ketones Urine Blood Urine Nitrate Urine Bilirubin Urine Urobilinogen Ur Leukocyte Esterase Urine RBC (Auto) Urine Microscopic WBC Ur Squamous Epith Cells Hyaline Casts Urine Opiates Screen Urine Methadone Screen Ur Barbiturates Screen Ur Phencyclidine Scrn Ur Amphetamines Screen U Benzodiazepines Scrn U Oth Cocaine Metabols U Cannabinoids Screen 10/11/18 10/11/18 10/11/18 15:44 16:45 18:29 WBC RBC Hgb Hct MCV MCH MCHC RDW Plt Count MPV Neut % (Auto) Lymph % (Auto) [place] % (Auto) Eos % (Auto) Baso % (Auto) Neut # (Auto) Lymph # (Auto) [place] # (Auto) Eos # (Auto) Baso # (Auto) Neutrophils % (Manual) Band Neutrophils % Lymphocytes % (Manual) Monocytes % (Manual) Platelet Estimate Macrocytosis (manual) Sodium Potassium Chloride Carbon Dioxide Anion Gap BUN Creatinine Est GFR ( Amer) Est GFR (Non-Af Amer) POC Glucose (mg/dL) 289 H 259 H Random Glucose Calcium Total Bilirubin AST ALT Alkaline Phosphatase Total Protein Albumin Globulin Albumin/Globulin Ratio Lipase Urine Color Yellow Urine Clarity Cloudy Urine pH 7.0 Ur Specific Leslie 1.030 Urine Protein >=500 Urine Glucose (UA) >=500 Urine Ketones 20 Urine Blood Moderate Urine Nitrate Negative Urine Bilirubin Negative Urine Urobilinogen 0.2-1.0 Ur Leukocyte Esterase Neg Urine RBC (Auto) 4 H Urine Microscopic WBC 4 Ur Squamous Epith Cells 32 H Hyaline Casts 0-2 Urine Opiates Screen Urine Methadone Screen Ur Barbiturates Screen Ur Phencyclidine Scrn Ur Amphetamines Screen U Benzodiazepines Scrn U Oth Cocaine Metabols U Cannabinoids Screen 10/11/18 10/11/18 10/12/18 18:33 23:55 02:29 WBC RBC Hgb Hct MCV MCH MCHC RDW Plt Count MPV Neut % (Auto) Lymph % (Auto) [place] % (Auto) Eos % (Auto) Baso % (Auto) Neut # (Auto) Lymph # (Auto) [place] # (Auto) Eos # (Auto) Baso # (Auto) Neutrophils % (Manual) Band Neutrophils % Lymphocytes % (Manual) Monocytes % (Manual) Platelet Estimate Macrocytosis (manual) Sodium Potassium Chloride Carbon Dioxide Anion Gap BUN Creatinine Est GFR ( Amer) Est GFR (Non-Af Amer) POC Glucose (mg/dL) 278 H 138 H Random Glucose Calcium Total Bilirubin AST ALT Alkaline Phosphatase Total Protein Albumin Globulin Albumin/Globulin Ratio Lipase Urine Color Urine Clarity Urine pH Ur Specific Leslie Urine Protein Urine Glucose (UA) Urine Ketones Urine Blood Urine Nitrate Urine Bilirubin Urine Urobilinogen Ur Leukocyte Esterase Urine RBC (Auto) Urine Microscopic WBC Ur Squamous Epith Cells Hyaline Casts Urine Opiates Screen Negative Urine Methadone Screen Negative Ur Barbiturates Screen Negative Ur Phencyclidine Scrn Negative Ur Amphetamines Screen Negative U Benzodiazepines Scrn Negative U Oth Cocaine Metabols Negative U Cannabinoids Screen Positive H 10/12/18 06:13 WBC RBC Hgb Hct MCV MCH MCHC RDW Plt Count MPV Neut % (Auto) Lymph % (Auto) [place] % (Auto) Eos % (Auto) Baso % (Auto) Neut # (Auto) Lymph # (Auto) [place] # (Auto) Eos # (Auto) Baso # (Auto) Neutrophils % (Manual) Band Neutrophils % Lymphocytes % (Manual) Monocytes % (Manual) Platelet Estimate Macrocytosis (manual) Sodium Potassium Chloride Carbon Dioxide Anion Gap BUN Creatinine Est GFR ( Amer) Est GFR (Non-Af Amer) POC Glucose (mg/dL) 194 H Random Glucose Calcium Total Bilirubin AST ALT Alkaline Phosphatase Total Protein Albumin Globulin Albumin/Globulin Ratio Lipase Urine Color Urine Clarity Urine pH Ur Specific Leslie Urine Protein Urine Glucose (UA) Urine Ketones Urine Blood Urine Nitrate Urine Bilirubin Urine Urobilinogen Ur Leukocyte Esterase Urine RBC (Auto) Urine Microscopic WBC Ur Squamous Epith Cells Hyaline Casts Urine Opiates Screen Urine Methadone Screen Ur Barbiturates Screen Ur Phencyclidine Scrn Ur Amphetamines Screen U Benzodiazepines Scrn U Oth Cocaine Metabols U Cannabinoids Screen
--- NOTE | 2018-10-12 11:03 | PCM.PSYCH ---
Initial Psychiatric Evaluation - Initial Psychiatric Evaluation Type of Admission: Voluntary Legal Status: Capacity Chief Complaint (in patient's own words): I keep hurting myself and I could not control it History of Present Illness and Precipitating Events: pt is 23ys old female with previous diagnosis of major depression, bulimia and diabetes non compliant with medications or follow up presented to the ER due to severe depression with suicidal ideation and GIT problems due to non compliance with Insulin pt reported since discharge she has not been compliant due to her work schedule and her duties towards her [employer], she became increasingly depressed , started having frequent episodes of binging and purging, self harming behaviour scratching herself , feeling hopeless and helpless, passive suicidal ideation giving up on life and stopped taking her insulin on evaluation pt is anxious , irritable, dysphoric, ,continues to report urges of self harm behaviour , denied perceptual disturbances denied homicidal ideation Current Medications: Active Medications Generic Name Dose Route Start Last Admin Trade Name Freq PRN Reason Stop Dose Admin Acetaminophen 650 mg 10/12/18 03:27 10/12/18 10:28 Tylenol 325mg Tab PO 650 mg Q4 PRN Administration pain 4-6 Al Hydrox/Mg Hydrox/Simethicone 30 ml 10/12/18 03:27 10/12/18 08:06 Maalox Plus 30 Ml PO 30 ml Q4 PRN Administration Dyspepsia Aripiprazole 5 mg 10/13/18 09:00 Abilify PO DAILY LAILA Ciprofloxacin 500 mg 10/12/18 10:30 Cipro PO 10/17/18 10:31 Q12 LAILA Protocol Diphenhydramine HCl 50 mg 10/12/18 03:27 Benadryl IM Q6 PRN Extrapyramidal S/S Unable PO Diphenhydramine HCl 50 mg 10/12/18 03:27 Benadryl PO Q6 PRN Extrapyramidal Symptoms Diphenhydramine HCl 50 mg 10/12/18 03:27 10/12/18 03:50 Benadryl PO 50 mg HS PRN Administration Sleep Fluoxetine HCl 20 mg 10/13/18 09:00 Prozac PO DAILY LAILA Gabapentin 100 mg 10/12/18 13:00 Neurontin PO TID LAILA Haloperidol 5 mg 10/12/18 03:27 Haldol PO Q4 PRN Agitation Haloperidol Lactate 5 mg 10/12/18 03:27 Haldol IM Q4 PRN Agitation, Unable to Take PO Lorazepam 2 mg 10/12/18 03:27 Ativan IM Q6 PRN Anxiety/Agitation,Unable PO Lorazepam 1 mg 10/12/18 03:27 Ativan PO Q8 PRN Anxiety/Agitation Magnesium Hydroxide 30 ml 10/12/18 03:27 Milk Of Magnesia PO HS PRN Constipation Ondansetron HCl 4 mg 10/12/18 06:41 10/12/18 06:49 Zofran Odt PO 4 mg Q6H PRN Administration Nausea/Vomiting Trazodone HCl 100 mg 10/12/18 22:00 Desyrel PO HS [facility] Past Psychiatric History - Past Psychiatric History Explanation of prior treatment: hx of at least two hospitalizations, hx of non compliance History of ETOH/Drug Use: cannabis use disorder Pertinent Medical Hx (Current Medical&Sleep Prob, Allergies): Allergies Allergy/AdvReac Type Severity Reaction Status Date / Time shellfish derived Allergy SWELLING Verified 08/22/18 15:01 Insulin Aspart, Recombinant [Novolog] 15 unit SQ TID 10/16/17 Insulin Glargine, Recombina [Lantus] 12 units SQ HS 10/16/17 ARIPiprazole [Abilify] 5 mg PO DAILY 30 Days #30 tab 08/30/18 FLUoxetine [Prozac] 30 mg PO DAILY 30 Days #90 cap 08/30/18 Gabapentin [Neurontin] 100 mg PO TID 30 Days #90 cap 08/30/18 traZODone [Desyrel] 100 mg PO HS 30 Days #30 tab 08/30/18 Mental Status Examination - Personal Presentation Personal Presentation: Looks stated age - Affect Affect: Constricted Additional comments: irritable - Motor Activity Motor Activity: Psychomotor Agitation - Reliability in Providing Information Reliability in Providing Information: Fair - Speech Speech: Relevant - Mood Mood: Depressed, Anxious - Formal Thought Process Formal Thought Process: Circumstantial - Obsessions/Compulsions Obsessions: No Compulsions: No - Cognitive Functions Orientation: Person, Place Sensorium: Alert Abstract Thinking: [place] Judgement: Imparied, as evidence by: Poor judgement - Risk Risk: Suicidal, Self-mutilation, Diminished functioning - Strength & Assets Inventory Strength & Assets Inventory: Life experience - Limitations Additional comments: poor compliance DSM 5 DX - DSM 5 DSM 5 Diagnosis: major depression recurrent severe bulimia nervosa borderline personality disorder cannabis abuse - Recommended/Plan of Treatment Treatment Recommendations and Plan of Treatment: start prozac 10mg increase gradually start abilify 2mg for poor impulse control increase gradually CBT motivational and group therapy internal medicine consult for diabetes
[2018-10-12] MEDS ORDERED: Dextrose 50% SYRINGE Inj (50 ml) IV PRN (12:53)
[2018-10-12] MEDS ORDERED: Glucagon Recombinant 1 mg Inj IM PRN (12:53)
--- NOTE | 2018-10-12 12:53 | CT ---
Date of service: 10/11/2018 PROCEDURE: CT Abdomen and Pelvis with contrast HISTORY: ABDOMINAL PAIN COMPARISON: None. TECHNIQUE: Contrast dose: Radiation dose: Total exam DLP = 801.03 mGy-cm. This CT exam was performed using one or more of the following dose reduction techniques: Automated exposure control, adjustment of the mA and/or kV according to patient size, and/or use of iterative reconstruction technique. FINDINGS: LOWER THORAX: Unremarkable. LIVER: Fatty liver. No gross lesion or ductal dilatation. GALLBLADDER AND BILE DUCTS: Unremarkable. PANCREAS: Unremarkable. No gross lesion or ductal dilatation. SPLEEN: Unremarkable. ADRENALS: Unremarkable. No mass. KIDNEYS AND URETERS: Unremarkable. No hydronephrosis. No solid mass. VASCULATURE: Unremarkable. No aortic aneurysm. No aortic atherosclerotic calcification or mural plaque present. BOWEL: Unremarkable. No obstruction. No gross mural thickening. APPENDIX: Normal appendix. PERITONEUM: Unremarkable. No free fluid. No free air. LYMPH NODES: Unremarkable. No enlarged lymph nodes. BLADDER: Unremarkable. REPRODUCTIVE: Unremarkable. BONES: No acute fracture. OTHER FINDINGS: None. IMPRESSION: Fatty liver.
[2018-10-12] MEDS ORDERED: Insulin Lispro (humaLOG) 100 Units/ml Inj SC SCH ×2 (13:00→16:30)
[2018-10-12] MEDS ORDERED: INSULIN ASPART RECOMBINANT 15 UNIT SQ SCH (13:00)
--- NOTE | 2018-10-12 14:21 | CP.PCM.CON ---
<Eugenio Kraus - Last Filed: 10/12/18 14:10> History of Present Illness - History of Present Illness History of Present Illness: HPI: 23 y/o woman w/ pmh of IDDM type I, mild intermittent asthma, and depression is admitted to psych for worsening depression. Patient also reports self-induced vomiting. Patient is non-adherent to medication. Patient reports chronic rash covering her back for over 1 month. Patient reports asthma is well controlled w/o recent inhaler use. Patient denies headaches, chest pain, diarrhea, dysuria, or fever. Patient denies suicidal/homicidial ideation. Review of Systems - Review of Systems All systems: reviewed and no additional remarkable complaints except - Constitutional Constitutional: absent: Fever, Headache - EENT Eyes: absent: Change in Vision - Cardiovascular Cardiovascular: absent: Chest Pain - Respiratory Respiratory: absent: Dyspnea - Gastrointestinal Gastrointestinal: absent: Abdominal Pain, Nausea, Vomiting - Genitourinary Genitourinary: absent: Dysuria - Neurological Neurological: absent: Dizziness, Headaches - Psychiatric Psychiatric: As Per HPI Past Patient History - Infectious Disease Hx of Infectious Diseases: None - Tetanus Immunizations Tetanus Immunization: Unknown - Past Medical History & Family History Past Medical History?: Yes - Past Social History Alcohol: None Drugs: Cannabis - CARDIAC Hx Cardiac Disorders: No Hx Hypertension: Yes - PULMONARY Hx Tuberculosis: No - NEUROLOGICAL HX Cerebrovascular Accident: No Hx Seizures: No - HEENT Hx HEENT Problems: No - RENAL Hx Chronic Kidney Disease: Yes - ENDOCRINE/METABOLIC Hx Endocrine Disorders: Yes Hx Diabetes Mellitus Type 1: Yes - HEMATOLOGICAL/ONCOLOGICAL Hx Cancer: No Hx Human Immunodeficiency Virus (HIV): No - INTEGUMENTARY Hx Dermatological Problems: Yes Other/Comment: Multiple open sores on her back d/t scratching - MUSCULOSKELETAL/RHEUMATOLOGICAL Hx Musculoskeletal Disorders: No - GASTROINTESTINAL Hx Gastrointestinal Disorders: No - GENITOURINARY/GYNECOLOGICAL Hx Sexually Transmitted Disorders: No - PSYCHIATRIC Hx Depression: Yes Hx Substance Use: Yes (MJ use daily) - SURGICAL HISTORY Hx Surgeries: Yes Hx Cholecystectomy: Yes Other/Comment: Ectopic 2017 - ANESTHESIA Hx Anesthesia: Yes Hx Anesthesia Reactions: No Hx Malignant Hyperthermia: No Meds Allergies/Adverse Reactions: Allergies Allergy/AdvReac Type Severity Reaction Status Date / Time shellfish derived Allergy SWELLING Verified 08/22/18 15:01 - Medications Medications: Current Medications Acetaminophen (Tylenol 325mg Tab) 650 mg PO Q4 PRN PRN Reason: pain 4-6 Last Admin: 10/12/18 10:28 Dose: 650 mg Al Hydrox/Mg Hydrox/Simethicone (Maalox Plus 30 Ml) 30 ml PO Q4 PRN PRN Reason: Dyspepsia Last Admin: 10/12/18 08:06 Dose: 30 ml Aripiprazole (Abilify) 5 mg PO DAILY [facility] Ciprofloxacin (Cipro) 500 mg PO Q12 [facility]ILA; Protocol Stop: 10/17/18 10:31 Last Admin: 10/12/18 11:38 Dose: 500 mg Dextrose (Dextrose 50% Inj) 0 ml IV STAT PRN; Protocol PRN Reason: Hypoglycemia Protocol Dextrose (Glutose 15) 0 gm PO ONCE PRN; Protocol PRN Reason: Hypoglycemia Protocol Diphenhydramine HCl (Benadryl) 50 mg IM Q6 PRN PRN Reason: Extrapyramidal S/S Unable PO Diphenhydramine HCl (Benadryl) 50 mg PO Q6 PRN PRN Reason: Extrapyramidal Symptoms Diphenhydramine HCl (Benadryl) 50 mg PO HS PRN PRN Reason: Sleep Last Admin: 10/12/18 03:50 Dose: 50 mg Famotidine (Pepcid) 20 mg PO BID [facility] Fluoxetine HCl (Prozac) 20 mg PO DAILY [facility] Gabapentin (Neurontin) 100 mg PO TID [facility] Last Admin: 10/12/18 13:40 Dose: 100 mg Glucagon (Glucagen Diagnostic Kit) 0 mg IM STAT PRN; Protocol PRN Reason: Hypoglycemia Protocol Haloperidol (Haldol) 5 mg PO Q4 PRN PRN Reason: Agitation Haloperidol Lactate (Haldol) 5 mg IM Q4 PRN PRN Reason: Agitation, Unable to Take PO Hydrocortisone (Cortizone 1% Cream) 1 applic TOP BID [facility] Insulin Detemir (Levemir) 10 units SC HS [facility] Insulin Human Lispro (Humalog) 15 units SC 0430,0730,1130 [facility] Loratadine (Claritin) 10 mg PO DAILY [facility] Last Admin: 10/12/18 13:38 Dose: 10 mg Lorazepam (Ativan) 2 mg IM Q6 PRN PRN Reason: Anxiety/Agitation,Unable PO Lorazepam (Ativan) 1 mg PO Q8 PRN PRN Reason: Anxiety/Agitation Magnesium Hydroxide (Milk Of Magnesia) 30 ml PO HS PRN PRN Reason: Constipation Ondansetron HCl (Zofran Odt) 4 mg PO Q6H PRN PRN Reason: Nausea/Vomiting Last Admin: 10/12/18 11:38 Dose: 4 mg Trazodone HCl (Desyrel) 100 mg PO HS [facility] Physical Exam - Constitutional Appears: Non-toxic, No Acute Distress - Head Exam Head Exam: ATRAUMATIC, NORMAL INSPECTION, NORMOCEPHALIC - Eye Exam Eye Exam: EOMI, Normal appearance, PERRL - ENT Exam ENT Exam: Mucous Membranes Moist - Neck Exam Neck exam: Positive for: Full Rom. Negative for: Tenderness - Respiratory Exam Respiratory Exam: Clear to Auscultation Bilateral, NORMAL BREATHING PATTERN. absent: Rales, Rhonchi, Wheezes, Respiratory Distress - Cardiovascular Exam Cardiovascular Exam: REGULAR RHYTHM, RRR, +S1, +S2. absent: Tachycardia - Extremities Exam Extremities exam: Positive for: normal inspection. Negative for: calf tenderness, pedal edema - Back Exam Additional comments: entire back hyperpigmentation and post-inflammatory changes due to chronic rash - Neurological Exam Neurological exam: Alert, Normal Gait, Oriented x3 - Skin Skin Exam: Dry, Rash Results - Vital Signs Recent Vital Signs: Last Vital Signs Temp 98.4 F 10/12/18 03:08 Pulse 92 H 10/12/18 03:41 Resp 18 10/12/18 03:41 BP 147/85 10/12/18 03:08 Pulse Ox 98 10/12/18 03:15 - Labs Result Diagrams: 10/11/18 15:12 10/11/18 15:12 Labs: Laboratory Results - last 24 hr 10/11/18 10/11/18 10/11/18 14:38 15:12 15:12 WBC 15.2 H D RBC 4.33 Hgb 13.8 Hct 40.5 MCV 93.5 MCH 31.8 H MCHC 34.0 RDW 14.1 Plt Count 301 D MPV 8.2 Neut % (Auto) 92.5 H Lymph % (Auto) 3.6 L Carroll % (Auto) 3.7 Eos % (Auto) 0.0 Baso % (Auto) 0.2 Neut # (Auto) 14.0 H Lymph # (Auto) 0.5 L Carroll # (Auto) 0.6 Eos # (Auto) 0.0 Baso # (Auto) 0.0 Neutrophils % (Manual) 85 H Band Neutrophils % 2 Lymphocytes % (Manual) 6 L Monocytes % (Manual) 7 Platelet Estimate Normal Macrocytosis (manual) Slight Sodium 142 Potassium 3.7 Chloride 96 L Carbon Dioxide 33 H Anion Gap 17 BUN 14 Creatinine 0.8 Est GFR ( Amer) > 60 Est GFR (Non-Af Amer) > 60 POC Glucose (mg/dL) 341 H Random Glucose 350 H Calcium 9.8 Total Bilirubin 0.5 AST 36 D ALT 41 Alkaline Phosphatase 55 Total Protein 8.2 Albumin 4.6 Globulin 3.6 Albumin/Globulin Ratio 1.3 Lipase 77 Urine Color Urine Clarity Urine pH Ur Specific Seymour Urine Protein Urine Glucose (UA) Urine Ketones Urine Blood Urine Nitrate Urine Bilirubin Urine Urobilinogen Ur Leukocyte Esterase Urine RBC (Auto) Urine Microscopic WBC Ur Squamous Epith Cells Hyaline Casts Urine Opiates Screen Urine Methadone Screen Ur Barbiturates Screen Ur Phencyclidine Scrn Ur Amphetamines Screen U Benzodiazepines Scrn U Oth Cocaine Metabols U Cannabinoids Screen 10/11/18 10/11/18 10/11/18 15:44 16:45 18:29 WBC RBC Hgb Hct MCV MCH MCHC RDW Plt Count MPV Neut % (Auto) Lymph % (Auto) Carroll % (Auto) Eos % (Auto) Baso % (Auto) Neut # (Auto) Lymph # (Auto) Carroll # (Auto) Eos # (Auto) Baso # (Auto) Neutrophils % (Manual) Band Neutrophils % Lymphocytes % (Manual) Monocytes % (Manual) Platelet Estimate Macrocytosis (manual) Sodium Potassium Chloride Carbon Dioxide Anion Gap BUN Creatinine Est GFR ( Amer) Est GFR (Non-Af Amer) POC Glucose (mg/dL) 289 H 259 H Random Glucose Calcium Total Bilirubin AST ALT Alkaline Phosphatase Total Protein Albumin Globulin Albumin/Globulin Ratio Lipase Urine Color Yellow Urine Clarity Cloudy Urine pH 7.0 Ur Specific Seymour 1.030 Urine Protein >=500 Urine Glucose (UA) >=500 Urine Ketones 20 Urine Blood Moderate Urine Nitrate Negative Urine Bilirubin Negative Urine Urobilinogen 0.2-1.0 Ur Leukocyte Esterase Neg Urine RBC (Auto) 4 H Urine Microscopic WBC 4 Ur Squamous Epith Cells 32 H Hyaline Casts 0-2 Urine Opiates Screen Urine Methadone Screen Ur Barbiturates Screen Ur Phencyclidine Scrn Ur Amphetamines Screen U Benzodiazepines Scrn U Oth Cocaine Metabols U Cannabinoids Screen 10/11/18 10/11/18 10/12/18 18:33 23:55 02:29 WBC RBC Hgb Hct MCV MCH MCHC RDW Plt Count MPV Neut % (Auto) Lymph % (Auto) Carroll % (Auto) Eos % (Auto) Baso % (Auto) Neut # (Auto) Lymph # (Auto) Carroll # (Auto) Eos # (Auto) Baso # (Auto) Neutrophils % (Manual) Band Neutrophils % Lymphocytes % (Manual) Monocytes % (Manual) Platelet Estimate Macrocytosis (manual) Sodium Potassium Chloride Carbon Dioxide Anion Gap BUN Creatinine Est GFR ( Amer) Est GFR (Non-Af Amer) POC Glucose (mg/dL) 278 H 138 H Random Glucose Calcium Total Bilirubin AST ALT Alkaline Phosphatase Total Protein Albumin Globulin Albumin/Globulin Ratio Lipase Urine Color Urine Clarity Urine pH Ur Specific Seymour Urine Protein Urine Glucose (UA) Urine Ketones Urine Blood Urine Nitrate Urine Bilirubin Urine Urobilinogen Ur Leukocyte Esterase Urine RBC (Auto) Urine Microscopic WBC Ur Squamous Epith Cells Hyaline Casts Urine Opiates Screen Negative Urine Methadone Screen Negative Ur Barbiturates Screen Negative Ur Phencyclidine Scrn Negative Ur Amphetamines Screen Negative U Benzodiazepines Scrn Negative U Oth Cocaine Metabols Negative U Cannabinoids Screen Positive H 10/12/18 06:13 WBC RBC Hgb Hct MCV MCH MCHC RDW Plt Count MPV Neut % (Auto) Lymph % (Auto) Carroll % (Auto) Eos % (Auto) Baso % (Auto) Neut # (Auto) Lymph # (Auto) Carroll # (Auto) Eos # (Auto) Baso # (Auto) Neutrophils % (Manual) Band Neutrophils % Lymphocytes % (Manual) Monocytes % (Manual) Platelet Estimate Macrocytosis (manual) Sodium Potassium Chloride Carbon Dioxide Anion Gap BUN Creatinine Est GFR ( Amer) Est GFR (Non-Af Amer) POC Glucose (mg/dL) 194 H Random Glucose Calcium Total Bilirubin AST ALT Alkaline Phosphatase Total Protein Albumin Globulin Albumin/Globulin Ratio Lipase Urine Color Urine Clarity Urine pH Ur Specific Seymour Urine Protein Urine Glucose (UA) Urine Ketones Urine Blood Urine Nitrate Urine Bilirubin Urine Urobilinogen Ur Leukocyte Esterase Urine RBC (Auto) Urine Microscopic WBC Ur Squamous Epith Cells Hyaline Casts Urine Opiates Screen Urine Methadone Screen Ur Barbiturates Screen Ur Phencyclidine Scrn Ur Amphetamines Screen U Benzodiazepines Scrn U Oth Cocaine Metabols U Cannabinoids Screen Assessment & Plan - Assessment and Plan (Free Text) Assessment: 23 y/o woman w/ pmh of IDDM type I, mild intermittent asthma, and depression is admitted to psych for worsening depression Plan: Depression - management as per psychiatry team - monitor for acute changes IDDM type 1 - poor adherence - c/w lispro 15 units TID - c/w levemir 10 units HS - hypoglycemia protocol - insulin correction scale - accucheck Rash - chronic - start hydrocortisone 1% cream BID prn for pruritus - start zantac 150 mg PO BID - start claritin 10 mg PO daily Asthma - mild intermittent - well controlled - monitor for acute changes Prophylactic measures - Ambulatory, low risk for DVT <Heidi Donnelly - Last Filed: 10/20/18 15:44> Results - Vital Signs Recent Vital Signs: Last Vital Signs Temp 97.8 F 10/18/18 09:00 Pulse 108 H 10/18/18 09:00 Resp 18 10/18/18 09:00 BP 133/96 H 10/18/18 09:00 Pulse Ox 98 10/12/18 22:27 - Labs Result Diagrams: 10/13/18 06:30 10/13/18 06:30 Attending/Attestation - Attestation I have personally seen and examined this patient.: Yes I have fully participated in the care of the patient.: Yes I have reviewed all pertinent clinical information: Yes Notes (Text): 10/20/18 15:44 agree with findings and plan as above.
--- NOTE | 2018-10-12 17:38 | CARD ---
APPROVED REPORT Date of service: 10/12/2018 EKG Measurement Heart [id number] <Conclusion> Normal sinus rhythm Normal ECG
[2018-10-12] MEDS: Insulin Lispro (humaLOG) 100 Units/ml Inj SC SCH (18:51)
[2018-10-12] MEDS: Insulin Detemir 100 Units/ml Inj SC SCH (21:18)
[2018-10-12] MEDS ORDERED: INSULIN GLARGINE RECOMBINA SQ SCH (22:00)
[2018-10-13] MEDS ORDERED: Insulin Lispro (humaLOG) 100 Units/ml Inj SC SCH (04:30)
[2018-10-13 06:59] LABS: HEMOGLOBIN 13.7 g/dL (12.0-16.0); MEAN CORPUSCULAR HEMOGLOBIN 32.6 pg (27.0-31.0); RBC 4.21 Mil/uL (3.80-5.20); RED CELL DISTRIBUTION WIDTH 13.6 % (11.5-14.5); WHITE BLOOD COUNT 9.4 K/uL (4.8-10.8)
[2018-10-13 07:21] LABS: ALB/GLOB RATIO 1.2 (1.0-2.1); ALBUMIN 4.1 g/dL (3.5-5.0); ALT/SGPT 40 U/L (9-52); AST/SGOT 38 U/L (14-36); BLOOD UREA NITROGEN 10 mg/dl (7-17); CALCIUM 9.6 mg/dL (8.4-10.2); GFR NON-AFRICAN AMERICAN > 60; HDL CHOLESTEROL 51 MG/DL (30-70); LDL CHOLESTEROL < 30 mg/dL (0-129)
[2018-10-13] MEDS: Insulin Lispro (humaLOG) 100 Units/ml Inj SC SCH ×3 (09:15→17:34)
--- NOTE | 2018-10-13 16:03 | PCM.PYCHPN ---
Psychiatric Progress Note - Psychiatric Progress Note Patient seen today, length of contact: pt evaluated discussed with team chart reviewed Patient Chief Complaint: I still have urges to purge and scratch myself Problems Identified/Issues Discussed: pt evaluated with treatment team, presnting with depressed mood, tearful affect when talking about her mother's and the needs of her twin sibilings, reported feeling overwhelmed, continues to have episodes of purging, CBT provided discussing with pt healthy coping skills with stress also discussed increasing dose of prozac, advised pt to reort to nurses once she has any urge to scratch herself, encouraged to attend groups no reported side efefcts of medications , denied perceptual disturbances Medical Problems: hx of at least two hospitalizations, hx of non compliance DSM 5 Symptoms Update: major depression bulimia nervosa Medication Change: Yes (increase prozac ) Medical Record Reviewed: Yes Mental Status Examination - Cognitive Function Orientation: Person, Place Attention: WNL Concentration: WNL Association: WNL Fund of Knowledge: WNL Decription of patient's judgement and insights: partial insight fair judgment - Mood Mood: Depressed, Anxious - Affect Affect: Constricted - Speech Speech: Soft - Formal Thought Process Formal Thought Process: Circumstantial - Suicidal Ideation Suicidal Ideation: No - Homicidal Ideation Homicidal Ideation: No Goal/Treatment Plan - Goal/Treatment Plan Need for Continued Stay: Severe depression anxiety, Discharge may exacerbated symptoms Progress Toward Problem(s) and Goals/Treatment Plan: increase prozac 30mg daily increase abilify 5mg for poor impulse control neurontin 100mg tid trazodone 100mg qhs CBT motivational and group therapy internal medicine consult for diabetes
[2018-10-13] MEDS: Insulin Detemir 100 Units/ml Inj SC SCH (21:42)
[2018-10-14] MEDS: Insulin Lispro (humaLOG) 100 Units/ml Inj SC SCH ×3 (09:48→17:43)
--- NOTE | 2018-10-14 17:52 | PCM.PYCHPN ---
Psychiatric Progress Note - Psychiatric Progress Note Patient seen today, length of contact: pt evaluated discussed with team chart reviewed Patient Chief Complaint: pt reports suffers from binging and purging today reports has been able to keep 3 meals down, reports this occurs when anxious, staff report pt adherent with treatment seen about milieu p Problems Identified/Issues Discussed: alteration in mood alteration in nutritional intake alteration in self care alteration in nutritional intake Medical Problems: per chart elevation glucose Diagnostic Results: per psychiatry per medicine per nursing per social work per recreational therapy DSM 5 Symptoms Update: improving po intake Medication Change: No Medical Record Reviewed: Yes Consults ordered or reviewed: pt seen by hosptialist Mental Status Examination - Cognitive Function Orientation: Person, Place Attention: WNL Concentration: WNL Association: [facility] Fund of Knowledge: [facility] Decription of patient's judgement and insights: impaired - Mood Mood: Depressed, Anxious Additional comments: reportedly somewhat less anxious - Affect Affect: Constricted - Speech Speech: Soft - Formal Thought Process Formal Thought Process: Circumstantial - Suicidal Ideation Suicidal Ideation: No - Homicidal Ideation Homicidal Ideation: No Goal/Treatment Plan - Goal/Treatment Plan Need for Continued Stay: Severe depression anxiety, Discharge may exacerbated symptoms Progress Toward Problem(s) and Goals/Treatment Plan: inpt milieu adjust meds per clinical status staff to monitor po intake in context of hx of binging and purging discharge planning in progress Estimated Date of D/C: 10/18/18 - Smoking Cessation Smoking Cessation Initiated: No Reason for not providing: defers
[2018-10-14] MEDS: Insulin Detemir 100 Units/ml Inj SC SCH (21:30)
[2018-10-15] MEDS: Insulin Lispro (humaLOG) 100 Units/ml Inj SC SCH ×3 (08:09→17:34)
--- NOTE | 2018-10-15 15:05 | PCM.PYCHPN ---
Psychiatric Progress Note - Psychiatric Progress Note Patient seen today, length of contact: pt evaluated discussed with team chart reviewed Patient Chief Complaint: reports that mood is somewhat calmer somewhat less depressed reports -11/28, reports has been able to keep 3 meals down, reported improvement, staff report pt adherent , has been receiving prn anti nausea rx, reports sleeping improving, less binging or purging Problems Identified/Issues Discussed: alteration in mood alteration in nutritional intake alteration in self care alteration in nutritional intake Medical Problems: per chart elevation glucose Diagnostic Results: per psychiatry per medicine per nursing per social work per recreational therapy DSM 5 Symptoms Update: somewhat improved mood does report 10/29 does belief can improve more Medication Change: Yes (increase abilify 10mg po day, abilify 5mg po x1 dose today) Medical Record Reviewed: Yes Consults ordered or reviewed: pt seen by hospitalist Mental Status Examination - Cognitive Function Orientation: Person, Place Attention: WNL Concentration: WNL Association: WNL Fund of Knowledge: WNL Decription of patient's judgement and insights: impaired - Mood Mood: Depressed, Anxious - Affect Affect: Constricted - Speech Speech: Soft - Formal Thought Process Formal Thought Process: Circumstantial - Suicidal Ideation Suicidal Ideation: No - Homicidal Ideation Homicidal Ideation: No Goal/Treatment Plan - Goal/Treatment Plan Need for Continued Stay: Severe depression anxiety, Discharge may exacerbated symptoms Progress Toward Problem(s) and Goals/Treatment Plan: inpt milieu adjust meds per clinical status will give abilify 5mg po x 1 dose today (received abilify 5mg x 1 dose today), then increase abiify to 10mg po am starting am staff to monitor po intake in context of hx of binging and purging discharge planning in progress Estimated Date of D/C: 10/18/18 - Smoking Cessation Smoking Cessation Initiated: No Reason for not providing: pt defers
[2018-10-15] MEDS: Insulin Detemir 100 Units/ml Inj SC SCH (21:49)
[2018-10-16] MEDS: Insulin Lispro (humaLOG) 100 Units/ml Inj SC SCH ×3 (09:01→17:44)
--- NOTE | 2018-10-16 14:49 | PCM.PYCHPN ---
Psychiatric Progress Note - Psychiatric Progress Note Patient seen today, length of contact: pt evaluated discussed with team chart reviewed Patient Chief Complaint: I still have urges to purge and scratch myself Problems Identified/Issues Discussed: pt evaluated , reported feeling less depressed, continues to have poor sleep with early insomnia, discussed increasing trazodone, pt also continues to struggle with urges to purge and to scratch her skin, CBT provided , discussing possible triggers, and designing a plan of coping skills with the trigerrs to avoid self harm behavious, discussed increasing dose of prozac, pt agress to start therapy on discharge no reported side effects of medications , denied perceptual disturbances Medical Problems: hx of at least two hospitalizations, hx of non compliance Medication Change: Yes (increase prozac ) Medical Record Reviewed: Yes Mental Status Examination - Cognitive Function Orientation: Person, Place Attention: WNL Concentration: WNL Association: WNL Fund of Knowledge: WNL - Mood Mood: Depressed, Anxious - Affect Affect: Constricted - Speech Speech: Soft - Formal Thought Process Formal Thought Process: Circumstantial - Suicidal Ideation Suicidal Ideation: No - Homicidal Ideation Homicidal Ideation: No Goal/Treatment Plan - Goal/Treatment Plan Need for Continued Stay: Severe depression anxiety, Discharge may exacerbated symptoms Progress Toward Problem(s) and Goals/Treatment Plan: increase prozac 40mg daily abilify 10mg for poor impulse control neurontin 100mg tid trazodone 100mg qhs CBT motivational and group therapy Estimated Date of D/C: 10/18/18
[2018-10-16] MEDS: Insulin Detemir 100 Units/ml Inj SC SCH (21:10)
[2018-10-17] MEDS: Insulin Lispro (humaLOG) 100 Units/ml Inj SC SCH ×2 (08:41→12:22)
--- NOTE | 2018-10-17 13:39 | PCM.PYCHPN ---
Psychiatric Progress Note - Psychiatric Progress Note Patient seen today, length of contact: pt evaluated discussed with team chart reviewed Patient Chief Complaint: I had hard time sleeping Problems Identified/Issues Discussed: pt evaluated , reported improved mood, presenting with brighter affect, no reported of purging or self scratching yesterday, observed interacting with other peers, more social attending groups, reported continues to have early insomnia, discussed increasing dose of trazodone, no reported side effects of medications with increasing dose , denied perceptual disturbances Medical Problems: hx of at least two hospitalizations, hx of non compliance DSM 5 Symptoms Update: major depression bulimia nervosa cannabis abuse Medication Change: Yes (increase trazodone ) Medical Record Reviewed: Yes Mental Status Examination - Cognitive Function Orientation: Person, Place Attention: WNL Concentration: WNL Association: WNL Fund of Knowledge: WNL - Mood Mood: Anxious - Affect Affect: Constricted - Speech Speech: Appropriate, Soft - Formal Thought Process Formal Thought Process: Circumstantial Psychotic Thoughts and Behaviors: pt denied psychotic symptoms, non elicited - Suicidal Ideation Suicidal Ideation: No - Homicidal Ideation Homicidal Ideation: No Goal/Treatment Plan - Goal/Treatment Plan Need for Continued Stay: Severe depression anxiety, Discharge may exacerbated symptoms Progress Toward Problem(s) and Goals/Treatment Plan: prozac 40mg daily abilify 10mg for poor impulse control neurontin 100mg tid trazodone 150mg qhs CBT motivational and group therapy Estimated Date of D/C: 10/18/18
[2018-10-17] MEDS: Insulin Detemir 100 Units/ml Inj SC SCH (21:02)
[2018-10-18] MEDS: Insulin Lispro (humaLOG) 100 Units/ml Inj SC SCH (08:35)
[2018-10-18 10:56] VITALS: BP 133/96; PULSE 108; RESP 18; TEMP 97.8
--- NOTE | 2018-10-18 11:38 | PCM.PYCHDC ---
Mental Status Examination - Mental Status Examination Orientation: Person, Place, Situation Memory: Intact Mood: Neutral Affect: Broad Speech: Appropriate Attention: WNL Concentration: WNL Association: WNL Fund of Knowledge: WNL Formal Thought Process: No Impairment Description of patient's judgement and insight: partial insight fair judgment Psychotic Thoughts and Behaviors: pt denied psychotic symptoms, non elicited Suicidal Ideation: No Current Homicidal Ideation?: No Discharge Summary - Discharge Note Reason for Hospitalization: pt is 23ys old female with previous diagnosis of major depression, bulimia and diabetes non compliant with medications or follow up presented to the ER due to severe depression with suicidal ideation and GIT problems due to non compliance with Insulin pt reported since discharge she has not been compliant due to her work schedule and her duties towards her sibilings, she became increasingly depressed , started having frequent episodes of binging and purging, self harming behaviour scratching herself , feeling hopeless and helpless, passive suicidal ideation giving up on life and stopped taking her insulin on evaluation pt is anxious , irritable, dysphoric, ,continues to report urges of self harm behaviour , denied perceptual disturbances denied homicidal ideation Laboratory Data: Abnormal Lab Results 10/17/18 10/17/18 10/17/18 11:59 17:09 20:10 POC Glucose (mg/dL) 212 H 227 H 198 H 10/18/18 06:14 POC Glucose (mg/dL) 166 H Consultations:: List each consultation separately and include: 1. Reason for request. 2. Findings. 3. Follow-up Summary of Hospital Course include:: 1. Description of specific treatment plan utilized for patients during their course of treatmen. 2. Summarize the time- course for resolution of acute symptoms and/or regressed behaviors. 3. Describe issues identified and worked on during hospitalization. 4. Describe medication utilized. 5. Describe medical problems identified and treated. 6. Reassessment of suicide risk Summary of Hospital Course: pt ON ADMISSION CONTINUED TO REPORT DEPRESSED MOOD, URGES FOR SELF HARM, INCLUDING SCRATCHING AND PURGING PT WAS STARTED ON ABILIFY, IT WAS INCREASED TO 10MG DAILY, SHE WAS ALSO PLACED ON PROZAC 30MG DAILY, NEURONTIN FOR ANXIETY AND TRAZODONE FOR SLEEP MOTIVATIONAL THERAPY PROVIDED IN REFERENCE TO CANNABIS USE PT WAS COMPLIANT WITH TREATMENT , ATTENDED GROUPS, NO REPORTED SIDE EFFECTS OF MEDICATIONS ON DISCHARGE MENTAL STATUS WAS STABLE PT DENIED ANY CURRENT THOUGHTS OF SELF HARM, DENIED SUICIDAL OR HOMICIDAL IDEATION DENIED PERCEPTUAL DISTURBANCES - Diagnosis (1) Major depressive disorder Current Visit: Yes Status: Acute (2) Bulimia nervosa Current Visit: Yes Status: Acute - Final Diagnosis (DSM 5) Condition upon Discharge: STABLE DSM 5: major depression recurrent severe bulimia nervosa cannabis abuse Disposition: HOME/ ROUTINE Prescriptions/Medication Reconciliation: ARIPiprazole [Abilify] 10 mg PO DAILY 30 Days #30 tab FLUoxetine [Prozac] 30 mg PO DAILY 30 Days #90 cap Gabapentin [Neurontin] 100 mg PO TID 30 Days #90 cap Hydrocortisone 1% Cream [Cortizone 1% Cream] 1 applic TOP BID 30 Days #2 tube traZODone [Desyrel] 150 mg PO HS 30 Days #90 tab - Antipsychotic Medications Pt discharged on 2 or more routine antipsychotic medications: No
== END 2018-10-18 13:17 | disposition home or self-care (01) | DRG 430 ==
LOC: H.ER 13:03 → H.ERHOLD 10-12 02:06 → H.PSYCH 10-12 03:24
PROVIDERS: ADMIT Psychiatry & Neurology Psychiatry; ATTEND Psychiatry & Neurology Psychiatry
PROC: GZHZZZZ Group Psychotherapy (ICD-10-PCS; principal; 2018-10-12)
PROC: GZ58ZZZ Individual Psychotherapy, Cognitive-Behavioral (ICD-10-PCS; 2018-10-12)
PROC: HZ52ZZZ Individual Psychotherapy for Substance Abuse Treatment, Cognitive-Behavioral (ICD-10-PCS; 2018-10-12)
DX: F33.2 Major depressive disorder, recurrent severe without psychotic features (principal); F12.10 Cannabis abuse, uncomplicated; F60.3 Borderline personality disorder; F50.2 Bulimia nervosa; F41.9 Anxiety disorder, unspecified; E10.9 Type 1 diabetes mellitus without complications; J45.20 Mild intermittent asthma, uncomplicated; G47.00 Insomnia, unspecified; R45.851 Suicidal ideations; Z91.19 Patient's noncompliance with other medical treatment and regimen; Z91.5 Personal history of self-harm; L29.9 Pruritus, unspecified; Z87.442 Personal history of urinary calculi; Z79.4 Long term (current) use of insulin

== ENCOUNTER 2018-11-05 00:48 | Emergency (ER) | payer MEDICAID, OTHER ==
[2018-11-05 00:49] VITALS: BMI 28.6
[2018-11-05 01:02] VITALS: BP 127/79; PULSE 102; RESP 19; TEMP 98.7; O2SAT 98
[2018-11-05 01:47] LABS: BASO % 0.5 % (0.0-2.0); EOS % 0.4 % (0.0-4.0); HEMOGLOBIN 13.6 g/dL (12.0-16.0); LYMPH # 1.3 K/uL (1.0-4.3); LYMPH % 15.2 % (20.0-40.0); MEAN CELL VOLUME 93.1 fl (81.0-99.0); MEAN CORPUSCULAR HEMOGLOBIN 32.8 pg (27.0-31.0); MEAN CORPUSCULAR HGB CONC 35.3 g/dL (33.0-37.0); MEAN PLATELET VOLUME 8.4 fl (7.2-11.7); MONO # 0.5 K/uL (0.0-0.8); MONO % 5.8 % (0.0-10.0); NEUT # 6.9 K/uL (1.8-7.0); NEUT % 78.1 % (50.0-75.0); NRBC % 0.1 % (0.0-0.0); RBC 4.13 Mil/uL (3.80-5.20); RED CELL DISTRIBUTION WIDTH 14.2 % (11.5-14.5); WHITE BLOOD COUNT 8.8 K/uL (4.8-10.8)
[2018-11-05 01:52] LABS: SQUAMOUS EPITHIAL 7 /hpf (0-5); URINE BACTERIA RARE (<OCC); URINE BILIRUBIN NEGATIVE (NEGATIVE); URINE BLOOD NEGATIVE (NEGATIVE); URINE CLARITY SLIGHTY-CLOUDY (Clear); URINE COLOR YELLOW (YELLOW); URINE GLUCOSE (UA) NEG (NEGATIVE); URINE HYALINE CAST 0-2 /hpf (0-2); URINE LEUKOCYTE ESTERASE NEG Leu/uL (Negative); URINE PROTEIN 100 mg/dL (NEGATIVE); URINE UROBILINOGEN 0.2-1.0 mg/dL (0.2-1.0)
[2018-11-05 01:55] LABS: ALB/GLOB RATIO 1.3 (1.0-2.1); ALBUMIN 4.4 g/dL (3.5-5.0); BLOOD UREA NITROGEN 10 mg/dl (7-17); CALCIUM 9.3 mg/dL (8.4-10.2); GFR NON-AFRICAN AMERICAN > 60
[2018-11-05 01:57] LABS: ALT/SGPT 37 U/L (9-52); AST/SGOT 43 U/L (14-36)
[2018-11-05] MEDS ORDERED: Sodium Chloride 0.9% 1,000 ML IV SCH (02:00)
[2018-11-05 02:04] LABS: BARBITURATES, UR NEGATIVE (NEGATIVE); BENZODIAZEPINES, UR NEGATIVE (NEGATIVE); OPIATES, UR NEGATIVE (NEGATIVE); PHENCYCLIDINE, UR NEGATIVE (NEGATIVE)
--- NOTE | 2018-11-05 02:56 | ED PDOC ---
HPI: Abdomen Time Seen by Provider: 11/05/18 01:02 Chief Complaint (Nursing): Back Pain Chief Complaint (Provider): Abdominal pain History Per: Patient History/Exam Limitations: no limitations Additional Complaint(s): 23 y/o female, with a past medical history of bulimia, depression and Diabetes, presents to the ED with abdominal pain, nausea, and vomiting. Patient admits to self induced vomiting of 12 times today. Patient notes she was recently admitted and discharged from psych and is on a lot of medications which patient thinks are not working. Patient states she wants to be seen by crisis. She last took Motrin at 17:00 today without improvement. She has not been able to eat anything today due to nausea. Patient reports pain to the RUQ and right flank. She denies fever, chills, urinary symptoms, suicidal ideation, homicidal ideation, visual hallucinations, or auditory hallucination. PMD: Dr. Minor Lara Past Medical History Reviewed: Historical Data, Nursing Documentation, Vital Signs Vital Signs: Last Vital Signs Temp 98.7 F 11/05/18 01:00 Pulse 102 H 11/05/18 01:00 Resp 19 11/05/18 01:00 BP 127/79 11/05/18 01:00 Pulse Ox 98 11/05/18 01:00 - Medical History PMH: Asthma, Depression, Diabetes, Gall Bladder Disease (CHOLECYSTECTOMY), Kidney Stones, Chronic Kidney Disease Denies: Atrial Fibrillation, Cardia Arrhythmia, CHF, Hepatitis, HIV, HTN, Seizures, Sexually Transmitted Disease Other PMH: Bulimia - Surgical History Surgical History: Cholecystectomy - Family History Family History: States: Unknown Family Hx - Social History Current smoker - smoking cessation education provided: No Alcohol: Occasional Drugs: Cannabis (daily) - Immunization History Hx Tetanus Toxoid Vaccination: Yes Hx Influenza Vaccination: Yes Hx Pneumococcal Vaccination: Yes - Home Medications Home Medications: Ambulatory Orders Medication Instructions Recorded Insulin Aspart, Recombinant 15 unit SQ TID 10/16/17 [Novolog] Insulin Glargine, Recombina 12 units SQ HS 10/16/17 [Lantus] ARIPiprazole [Abilify] 5 mg PO DAILY 30 Days #30 tab 08/30/18 FLUoxetine [Prozac] 30 mg PO DAILY 30 Days #90 cap 08/30/18 Gabapentin [Neurontin] 100 mg PO TID 30 Days #90 cap 08/30/18 traZODone [Desyrel] 100 mg PO HS 30 Days #30 tab 08/30/18 ARIPiprazole [Abilify] 10 mg PO DAILY 30 Days #30 tab 10/18/18 FLUoxetine [Prozac] 30 mg PO DAILY 30 Days #90 cap 10/18/18 Gabapentin [Neurontin] 100 mg PO TID 30 Days #90 cap 10/18/18 Hydrocortisone 1% Cream [Cortizone 1 applic TOP BID 30 Days #2 tube 10/18/18 1% Cream] traZODone [Desyrel] 150 mg PO HS 30 Days #90 tab 10/18/18 Dicyclomine [Bentyl] 20 mg PO TID PRN #12 tab 11/05/18 - Allergies Allergies/Adverse Reactions: Allergies Allergy/AdvReac Type Severity Reaction Status Date / Time shellfish derived Allergy SWELLING Verified 11/05/18 01:01 Review of Systems ROS Statement: Except As Marked, All Systems Reviewed And Found Negative Constitutional: Negative for: Fever, Chills Gastrointestinal: Positive for: Nausea, Abdominal Pain. Negative for: Vomiting Genitourinary Female: Negative for: Dysuria, Hematuria Neurological: Positive for: Other Psych: Negative for: Suicidal ideation (or homicidal ideation), Other (visual or auditory hallucinations) Physical Exam - Reviewed Nursing Documentation Reviewed: Yes Vital Signs Reviewed: Yes - Physical Exam Appears: Positive for: No Acute Distress (no obvious discomfort; over weight) Head Exam: Positive for: ATRAUMATIC, NORMOCEPHALIC Skin: Positive for: Normal Color, Warm, Dry Eye Exam: Positive for: Normal appearance Cardiovascular/Chest: Positive for: Regular Rate, Rhythm. Negative for: Murmur Respiratory: Positive for: Normal Breath Sounds. Negative for: Wheezing, Respiratory Distress Gastrointestinal/Abdominal: Positive for: Bowel Sounds (Normal), Soft, Tenderness (RUQ). Negative for: Organomegaly, Mass, Guarding, Rebound Back: Positive for: R CVA Tenderness (Mild right CVA tenderness). Negative for: L CVA Tenderness Neurological/Psych: Positive for: Awake, Alert, Normal Tone - Laboratory Results Result Diagrams: 11/05/18 01:20 11/05/18 01:20 Lab Results: Total Bilirubin 0.7 mg/dl (0.2-1.3) 11/05/18 01:20 AST 43 U/L (14-36) H 11/05/18 01:20 ALT 37 U/L (9-52) 11/05/18 01:20 Alkaline Phosphatase 41 U/L (38-126) 11/05/18 01:20 Total Protein 7.8 G/DL (6.3-8.2) 11/05/18 01:20 Albumin 4.4 g/dL (3.5-5.0) 11/05/18 01:20 Globulin 3.5 gm/dL (2.2-3.9) 11/05/18 01:20 Albumin/Globulin Ratio 1.3 (1.0-2.1) 11/05/18 01:20 Urine Color Yellow (YELLOW) 11/05/18 01:30 Urine Clarity Slighty-cloudy (Clear) 11/05/18 01:30 Urine pH 7.0 (5.0-8.0) 11/05/18 01:30 Ur Specific Newman 1.011 (1.003-1.030) 11/05/18 01:30 Urine Protein 100 mg/dL (NEGATIVE) 11/05/18 01:30 Urine Glucose (UA) Neg mg/dL (NEGATIVE) 11/05/18 01:30 Urine Ketones Negative mg/dL (NEGATIVE) 11/05/18 01:30 Urine Blood Negative (NEGATIVE) 11/05/18 01:30 Urine Nitrate Negative (NEGATIVE) 11/05/18 01:30 Urine Bilirubin Negative (NEGATIVE) 11/05/18 01:30 Urine Urobilinogen 0.2-1.0 mg/dL (0.2-1.0) 11/05/18 01:30 Ur Leukocyte Esterase Neg Bhavana/uL (Negative) 11/05/18 01:30 Urine RBC (Auto) < 1 /hpf (0-3) 11/05/18 01:30 Urine Microscopic WBC 1 /hpf (0-5) 11/05/18 01:30 Ur Squamous Epith Cells 7 /hpf (0-5) H 11/05/18 01:30 Urine Bacteria Rare (<OCC) 11/05/18 01:30 Hyaline Casts 0-2 /hpf (0-2) 11/05/18 01:30 - ECG O2 Sat by Pulse Oximetry: 98 (RA) Pulse Ox Interpretation: Normal Medical Decision Making Medical Decision Making: Initial Impression: Abdominal pain Initial Plan: --CMP --Urine drug screen --ED urine --CBC --Sodium chloride 1000mL IV --Toradol 30mg IV --Zofran 4mg IV --Urine culture --Urinalysis 324 re eval pt reports continued pain in RUQ pt reports she knows its from vomiting, only mild improvement of pain, nausea improved, will treat bentyl IM labs otherwise wnl, UA shows no infection, pt medically stable for crisis eval 447 pt seen by crisis and cleared by Dr. Myles, diagnosis bulimia, pt has proper follow up on re eval pt reports feeling better, pain improved and she is ready to go home, abdomen is soft and non tender, labs wnl, no concern for dehydration or self harm, pt is stable for dc discussed results, diagnosis, treatment, return precautions and f/u with pt who is understanidng, in agreement and stable for dc Scribe Attestation: Documented by Adrian Danielle acting as a scribe for Vishnu MURILLO. Provider Scribe Attestation: All medical record entries made by the Scribe were at my direction and personally dictated by me. I have reviewed the chart and agree that the record accurately reflects my personal performance of the history, physical exam, medical decision making, and the department course for this patient. I have also personally directed, reviewed, and agree with the discharge instructions and disposition. Disposition - Clinical Impression Clinical Impression: Bulimia, Abdominal pain - Patient ED Disposition Is Patient to be Admitted: No Counseled Patient/Family Regarding: Studies Performed, Diagnosis, Need For F ollowup, Rx Given - Disposition Referrals: your, doctor [Other] Disposition: Routine/Home Disposition Time: 04:50 Condition: STABLE Additional Instructions: The emergency medical care you received today was directed at your acute symptoms. If you were prescribed any medication, please fill it and take as directed. It may take several days for your symptoms to resolve. Return to the Emergency Department if your symptoms worsen, do not improve, or if you have any other problems. Please contact your doctor in 2 days for re-evaluation and follow up / or call one of the physicians/clinics you have been referred to that are listed on the Patient Visit Information form that is included in your discharge packet. Bring any paperwork you were given at discharge with you along with any medications you are taking to your follow up visit. Our treatment cannot replace ongoing medical care by a primary care provider (PCP) outside of the emergency department. Prescriptions: Dicyclomine [Bentyl] 20 mg PO TID PRN #12 tab PRN Reason: pain Instructions: Bulimia Nervosa, Acute Abdomen (Belly Pain), Adult (DC), Nausea and Vomiting, Adult (DC) Forms: [employer] (Nepalese) Print Language: YAKUT - POA Present On Arrival: None
== END 2018-11-05 05:00 | disposition home or self-care (01) ==
LOC: H.ER 00:48
DX: R10.9 Unspecified abdominal pain (principal); F50.2 Bulimia nervosa; E11.9 Type 2 diabetes mellitus without complications; Z79.4 Long term (current) use of insulin
CPT/HCPCS: 80053; 80324; 80345; 80346; 80349; 80353; 80358; 80361; 81003; 81025; 82948; 83992; 85025; 87086; 96361; 96374; 96375; 99283; J1885; J2405; J7030

== ENCOUNTER 2018-11-30 11:58 | Emergency (ER) | payer OTHER ==
[2018-11-30 12:27] VITALS: BP 133/83; PULSE 87; RESP 20; TEMP 98.6; BMI 34.8
[2018-11-30 12:29] VITALS: O2SAT 98
--- NOTE | 2018-11-30 14:58 | ED PDOC ---
HPI: Eye Injury/Pain Time Seen by Provider: 11/30/18 12:37 Chief Complaint (Nursing): Eye Problem Chief Complaint (Provider): Left Eye Redness and Swelling History Per: Patient History/Exam Limitations: no limitations Onset/Duration Of Symptoms: Hrs Additional Complaint(s): 23 year old female with history of DM presents to ED with left eye redness and swelling with crusting since this morning. Patient reports wiping away crusting but the eye still feels swollen and cannot be fully opened. She does not wear contact lenses and is supposed to wear glasses but does not report any actual pain or body sensation. LNMP was 11/13. PMD: [facility] Past Medical History Reviewed: Historical Data, Nursing Documentation, Vital Signs Vital Signs: Last Vital Signs Temp 98.6 F 11/30/18 12:27 Pulse 87 11/30/18 12:27 Resp 20 11/30/18 12:27 BP 133/83 11/30/18 12:27 Pulse Ox 98 11/30/18 12:27 Primary Care Provider: FAMILY PROVIDER,NO - Medical History PMH: Anxiety, Asthma, Depression, Gall Bladder Disease (CHOLECYSTECTOMY), Kidney Stones, Chronic Kidney Disease Denies: Atrial Fibrillation, Cardia Arrhythmia, CHF, Diabetes, Hepatitis, HIV, HTN, Seizures, Sexually Transmitted Disease - Surgical History Surgical History: Cholecystectomy - Family History Family History: States: Unknown Family Hx - Social History Current smoker - smoking cessation education provided: No Alcohol: None Drugs: Denies - Immunization History Hx Tetanus Toxoid Vaccination: Yes Hx Influenza Vaccination: Yes Hx Pneumococcal Vaccination: Yes - Home Medications Home Medications: Ambulatory Orders Medication Instructions Recorded Insulin Aspart, Recombinant 15 unit SQ TID 10/16/17 [Novolog] Insulin Glargine, Recombina 12 units SQ HS 10/16/17 [Lantus] ARIPiprazole [Abilify] 5 mg PO DAILY 30 Days #30 tab 08/30/18 FLUoxetine [Prozac] 30 mg PO DAILY 30 Days #90 cap 08/30/18 Gabapentin [Neurontin] 100 mg PO TID 30 Days #90 cap 08/30/18 traZODone [Desyrel] 100 mg PO HS 30 Days #30 tab 08/30/18 ARIPiprazole [Abilify] 10 mg PO DAILY 30 Days #30 tab 10/18/18 FLUoxetine [Prozac] 30 mg PO DAILY 30 Days #90 cap 10/18/18 Gabapentin [Neurontin] 100 mg PO TID 30 Days #90 cap 10/18/18 Hydrocortisone 1% Cream [Cortizone 1 applic TOP BID 30 Days #2 tube 10/18/18 1% Cream] traZODone [Desyrel] 150 mg PO HS 30 Days #90 tab 10/18/18 Dicyclomine [Bentyl] 20 mg PO TID PRN #12 tab 11/05/18 Erythromycin 0.5% [Erythromycin] 1 applic OD QID #1 tube 11/30/18 - Allergies Allergies/Adverse Reactions: Allergies Allergy/AdvReac Type Severity Reaction Status Date / Time shellfish derived Allergy SWELLING Verified 11/30/18 12:26 Review of Systems ROS Statement: Except As Marked, All Systems Reviewed And Found Negative Eyes: Positive for: Redness (left eye), Other (left eye swelling). Negative for: Pain Physical Exam - Reviewed Nursing Documentation Reviewed: Yes Vital Signs Reviewed: Yes - Physical Exam Appears: Positive for: No Acute Distress Head Exam: Positive for: NORMAL INSPECTION Skin: Positive for: Normal Color, Warm, Dry Eye Exam: Positive for: EOMI, PERRL, Periorbital tenderness, Other (left upper eyelid has mild swelling and erythema with stye, no active drainage, lid eversion: no foreign bodies). Negative for: Conjunctival injection (conjunctiva are clear) ENT: Positive for: Normal ENT Inspection Neck: Positive for: Normal, Painless ROM, Supple Cardiovascular/Chest: Positive for: Regular Rate, Rhythm Respiratory: Positive for: Normal Breath Sounds Neurological/Psych: Positive for: Awake, Alert, Oriented (x3) - ECG O2 Sat by Pulse Oximetry: 98 (RA) Pulse Ox Interpretation: Normal Medical Decision Making Medical Decision Making: Time: 1339 Initial Plan: Test for visual acuity, as documented 1344 Discussed diagnosis, treatment, return precautions and f/u with pt who is understanding, in agreement and stable for dc Patient is stable for discharge home. She was prescribed Erythromycin 0.5% applied OD QID. Scribe Attestation: Documented by Yury Ocampo acting as a scribe for Vishnu Parmar PA-C. Provider Scribe Attestation: All medical record entries made by the Scribe were at my direction and personally dictated by me. I have reviewed the chart and agree that the record accurately reflects my personal performance of the history, physical exam, medical decision making, and the department course for this patient. I have also personally directed, reviewed, and agree with the discharge instructions and disposition. Disposition - Clinical Impression Clinical Impression: Hordeolum externum (stye) - Patient ED Disposition Is Patient to be Admitted: No Counseled Patient/Family Regarding: Studies Performed, Diagnosis, Need For Followup, Rx Given - Disposition Referrals: your, Dr. Cuevas [Other] Disposition: Routine/Home Disposition Time: 13:45 Condition: STABLE Additional Instructions: Thank you for letting us take care of you today. The emergency medical care you received today was directed at your acute symptoms. If you were prescribed any medication, please fill it and take as directed. It may take several days for your symptoms to resolve. Return to the Emergency Department if your symptoms worsen, do not improve, or if you have any other problems. Please contact your doctor in 2 days for re-evaluation and follow up / or call one of the physicians/clinics you have been referred to that are listed on the Patient Visit Information form that is included in your discharge packet. Bring any paperwork you were given at discharge with you along with any medications you are taking to your follow up visit. Our treatment cannot replace ongoing medical care by a primary care provider (PCP) outside of the emergency department. Prescriptions: Erythromycin 0.5% [Erythromycin] 1 applic OD QID #1 tube Instructions: Stye (Hordeolum) Print Language: DOMINICAN - POA Present On Arrival: None
== END 2018-11-30 13:47 | disposition home or self-care (01) ==
LOC: H.ER 11:58
DX: H00.016 Hordeolum externum left eye, unspecified eyelid (principal); E11.22 Type 2 diabetes mellitus with diabetic chronic kidney disease; Z79.4 Long term (current) use of insulin